=== PATIENT | female | born 1960 | race Caucasian/White ===

== ENCOUNTER 2020-01-09 10:19 | Outpatient (CLI) | payer MEDICARE, SELFPAY ==
--- NOTE | ~2020-01-09 | CT_ITS ---
EXAMINATION: CT lung screening DATE: 01/09/2020 10:48 INDICATION: Personal history of tobacco dependence, current smoker with 30 pack year history TECHNIQUE: Computed tomography (CT) of the chest was performed without intravenous contrast. The dose -length product (DLP) was 75.51 mGy-cm. Automated exposure control and iterative reconstruction techn [employer] were employed. COMPARISON: 12/06/2018 FINDINGS: There is mild emphysema. Calcified pulmonary nodules are consistent with old granulomatous disease. No new or suspicious pulmonary nodule is identified. The lungs are free of acute opacities. There is no pleural effusion or pneumothorax. No pathologically enlarged thoracic lymph nodes are delores ntified. The heart size is normal. The gallbladder is surgically absent. There is moderate thoracic s pondylosis. IMPRESSION: 1. Lung-RADS category 2: Benign appearance or behavior. Continue annual screening with noncontrast lo w-dose chest CT in 12 months. Reviewed, dictated and finalized at location B. IMPRESSION: 1. Lung-RADS category 2: Benign appearance or behavior. Continue annual screeni ng with noncontrast low-dose chest CT in 12 months.
== END 2020-01-09 10:20 | disposition home or self-care (01) ==
PROVIDERS: PCP Internal Medicine; Visit Provider Internal Medicine
DX: Z87.891 Personal history of nicotine dependence (principal); Z12.2 Encounter for screening for malignant neoplasm of respiratory organs
CPT/HCPCS: G0297

== ENCOUNTER 2020-05-27 07:36 | Outpatient (CLI) | payer MEDICARE, SELFPAY ==
--- NOTE | ~2020-05-27 | MR_ITS ---
EXAMINATION: MR lumbar spine wo [facility] EXAM DATE: 05/27/2020 08:31 INDICATION: lumbar postlaminectomy syndrome. TECHNIQUE: Multi-sequential, multiplanar MR images of the lumbar spine were obtained without contrast . Sagittal T1, T2, T2 fat saturation images. Axial T2 weighted images. There is no prior study for comparison. FINDINGS: Fusion or disc replacement at L4-5 along with laminectomies. Mild to moderate lumbar dextro scoliosis. Mild to moderate disc disease L-1-L3 and at L5-S1. There is 3 mm anterolisthesis L4-5 on S 1. The vertebral bodies are otherwise aligned. The conus medullaris terminates at the L1/2 level and has normal signal intensity and morphology. Paraspinal soft tissue is unremarkable. Level by level evaluation: T12-L1: Disc does not extend beyond the endplate margin. Facet arthropathy: Mild. Neural foraminal stenosis: No stenosis. Central canal stenosis: No stenosis. L1-L2: Disc does not extend beyond the endplate margin. Facet arthropathy: Mild. Neural foraminal stenosis: No stenosis. Central canal stenosis: No stenosis. L2-L3: There is a mild to moderate diffuse disc bulge. Facet arthropathy: Mild. Neural foraminal stenosis: Moderate left. Central canal stenosis: Mild. L3-L4: There is a mild to moderate diffuse disc bulge. Facet arthropathy: Moderate. Neural foraminal stenosis: Moderate left, mild right. Central canal stenosis: Mild to moderate. L4-L5: Interbody device. Facet arthropathy: Surgical changes. Neural foraminal stenosis: Mild to moderate bilateral. Central canal stenosis: Posterior decompression. L5-S1: There is a mild to moderate diffuse disc bulge. Facet arthropathy: Severe. Neural foraminal stenosis: Moderate to severe right, mild to moderate left. Central canal stenosis: Posterior decompression. IMPRESSION: 1. L5-S1 grade 1 anterolisthesis, severe facet arthropathy. 2. L4-5 interbody device, surgical changes, laminectomies. 3. Mild to moderate dextroscoliosis. Reviewed, dictated and finalized at location A. OR PRINCIPAL
== END 2020-05-27 07:37 | disposition home or self-care (01) ==
PROVIDERS: PCP Internal Medicine; Visit Provider Physician Assistant
DX: M47.817 Spondylosis without myelopathy or radiculopathy, lumbosacral region (principal); M48.07 Spinal stenosis, lumbosacral region
CPT/HCPCS: 72148

== ENCOUNTER 2021-04-02 09:52 | Outpatient (CLI) | payer MEDICARE, SELFPAY ==
--- NOTE | ~2021-04-02 | XR_ITS ---
EXAMINATION: XR hip BI 2V w AP pelvis DATE: 04/02/2021 10:15 INDICATION: Left sacroiliitis. Ankylosing spondylosis of lumbar region. TECHNIQUE: An anteroposterior view of the pelvis and 2 views of each hip were obtained. COMPARISON: Lumbar spine MRI 05/27/2020 FINDINGS: There is dextroscoliosis and severe spondylosis of lumbar spine. There are changes of anter ior fusion procedure at L4-L5 with interbody devices. There is mild osteoarthritis of hips. Osteitis pubis is noted. There is moderate osteoarthritis of the sacroiliac joints. IMPRESSION: 1. Moderate osteoarthritis of the sacroiliac joints. No specific evidence of inflammatory arthropathy . Reviewed, dictated and finalized at location A. ION CLERK IMPRESSION: 1. Moderate osteoarthritis of the sacroiliac joints. No specific evidence of in flammatory arthropathy.
== END 2021-04-02 09:53 | disposition home or self-care (01) ==
LOC: ANHIMG 09:58
PROVIDERS: PCP Internal Medicine; Visit Provider Internal Medicine
DX: M47.816 Spondylosis without myelopathy or radiculopathy, lumbar region (principal); M16.0 Bilateral primary osteoarthritis of hip; M53.3 Sacrococcygeal disorders, not elsewhere classified
CPT/HCPCS: 73521

== ENCOUNTER 2021-04-07 09:35 | Outpatient (CLI) | payer MEDICARE, SELFPAY ==
--- NOTE | ~2021-04-07 | CT_ITS ---
EXAMINATION: CT lung screening DATE: 04/07/2021 09:54 INDICATION: Personal history of nicotine dependence, current smoker with 30 pack year history TECHNIQUE: Computed tomography (CT) of the chest was performed without intravenous contrast. The dose -length product (DLP) was 71.38 mGy-cm. Automated exposure control and iterative reconstruction techn [employer] were employed. COMPARISON: 01/09/2020 FINDINGS: The lungs are free of acute opacities. No new or suspicious pulmonary nodules are identifie d. There is minimal mucous plugging in the left lower lobe. Calcified pulmonary nodules are consisten t with old granulomatous disease. There is no pleural effusion or pneumothorax. No pathologically enl arged thoracic lymph nodes are identified. The heart size is normal. There is mild emphysema. Changes of cholecystectomy are noted. There is moderate thoracic spondylosis. IMPRESSION: 1. Lung-RADS category 2: Benign appearance or behavior. Continue annual screening with noncontrast lo w-dose chest CT in 12 months. Reviewed, dictated and finalized at location A. ED GOODS OPERATOR IMPRESSION: 1. Lung-RADS category 2: Benign appearance or behavior. Continue annual screeni ng with noncontrast low-dose chest CT in 12 months.
== END 2021-04-07 09:36 | disposition home or self-care (01) ==
LOC: ANHIMG 09:38
PROVIDERS: PCP Internal Medicine; Visit Provider Internal Medicine
DX: Z87.891 Personal history of nicotine dependence (principal)
CPT/HCPCS: 71271

== ENCOUNTER 2021-06-03 08:28 | Emergency (ER) | payer MEDICARE, SELFPAY ==
--- NOTE | 2021-06-03 08:34 | ED.URI ---
HPI - URI/Sore Throat General Chief Complaint: Upper Respiratory Infection Stated Complaint: Sinus Infection Time Seen by Provider: 06/03/21 08:45 Source: patient, family, RN notes reviewed and old records reviewed Mode of arrival: ambulatory Limitations: no limitations History of Present Illness HPI Narrative: 61-year-old female presents to the [facility] with complaints of cough, nasal congestion and sinus pain and pressure for 2 weeks. Has tried calling her primary care provider and was unable to get in. Has tried multiple [id number]-[id number] products with no relief. Has a history of chronic sinusitis and bronchitis. Patient currently is a smoker. States that she is both Covid vaccinated and flu vaccinated MD elicited complaint: cough and nasal congestion Related Data Home Medications Medication Instructions Recorded Confirmed duloxetine mg PO 06/03/21 folic acid 06/03/21 gabapentin 06/03/21 meloxicam 06/03/21 methotrexate sodium 06/03/21 montelukast mg 06/03/21 rosuvastatin mg 06/03/21 Allergies Allergy/AdvReac Type Severity Reaction Status Date / Time No Known Allergies Allergy Verified 06/03/21 08:34 Review of Systems Review of Systems: All systems reviewed & are unremarkable except as noted in HPI and below Constitutional: Constitutional: Reports no additional constitutional complaints, Denies chills, Denies fever(s) and Denies headache(s) Eyes: Eyes: Reports no additional eye complaints ENT: Reports as per HPI, Denies vertigo, Denies dizziness, Denies headache(s), Reports nasal congestion and Denies sore throat Cardiovascular: Cardiovascular: Reports no additional cardiovascular complaints, Denies chest pain, Denies syncope, Denies rapid heart rate and Denies dyspnea Respiratory: Respiratory: Reports as per HPI, Reports cough, Denies dyspnea and Reports wheezing Gastrointestinal: Gastrointestinal: Reports no additional gastrointestinal complaints, Denies abdominal pain, Denies diarrhea, Denies nausea and Denies vomiting Musculoskeletal: Musculoskeletal: Reports no additional musculoskeletal complaints and Denies numbness Integumentary/Breasts: Skin/Breast: Reports system reviewed and no additional complaints, except as docu Neurologic: Reports system reviewed and no additional complaints, except as documented, Denies vertigo, Denies dizziness, Denies syncope, Denies headache(s), Denies focal weakness and Denies numbness Psychiatric: Psychiatric: Reports no additional psychiatric complaints Allergic/Immunologic: Allergic/Immunologic: Reports no additional allergic/immunologic complaints PMFSH Past Medical History Medical History (Updated 06/03/21 @ 19:37 by Jessica Meraz) Autoimmune disease Seasonal allergies Comments At the time of my signature, I reviewed and agree with the nursing past medical, surgical, social, and family history. There is no relevant family history pertinent to the patient complaint. Exam Const: General: cooperative, no acute distress, well developed, alert and ill appearing acutely (mild) Nutritional Appearance: well nourished Orientation/consciousness: patient oriented x3 Limitations: no limitations HENMT: Head: normal to inspection Ears: external ears normal, TM's normal bilaterally and EAC's normal Eyes: Conjunctivae: conjunctivae normal Pupils: Equal, round and reactive pupils present Neck: Neck: normal visual inspection, no lymphadenopathy and no meningeal signs Chest: Chest palpation & inspection: normal inspection of the chest Resp: Effort & Inspection: normal respiratory effort and no use of accessory muscles Auscultation: no crackles, no rales, no rhonchi and wheezes scattered wheezes and throughout Cardio: Rate: regular rate Rhythm: regular rhythm GI: GI Palp: Yes Soft to palpation and No Tenderness to palpation present (GI) Back/Spine/Pelvis: Back: no CVA tenderness Skin: General skin exam: normal color Rashes: no rashes Wounds: no w
[2021-06-03 08:40] VITALS: BP 136/76; PULSE 86; RESP 18; TEMP 37.2; O2SAT 99
== END 2021-06-03 09:01 | disposition home or self-care (01) ==
PROVIDERS: Emergency Provider Nurse Practitioner; PCP Internal Medicine
DX: J40 Bronchitis, not specified as acute or chronic (principal); J01.41 Acute recurrent pansinusitis
CPT/HCPCS: 99213; G0463

== ENCOUNTER 2021-08-04 02:12 | Day surgery (SDC) | payer MEDICARE, SELFPAY ==
[2021-07-23 13:18] VITALS: BMI 22.1
[2021-08-04 09:10] VITALS: BP 147/90; PULSE 83; RESP 20; TEMP 36.5; O2SAT 97; BMI 28.8
[2021-08-04] MEDS: LACTATED RINGERS 1,000 ML 150 ML IV CONT (09:17)
--- NOTE | 2021-08-04 09:25 | P.PNAN_ITS ---
Anes - Initial Pre Proc Eval Procedure: Operation Date: 08/04/21 10:15 Proposed Procedures p Screening Colonoscopy - Varun Pozo MD Date/Time: 08/04/21 09:25 Surgeon: Varun Pozo MD Pre Op Diagnosis: neoplasm screening Patient Data Age: 61 Gender: F Height: 1.55 m Weight: 69.1 kg Last Vital Signs Temp 97.7 F 08/04/21 09:10 Pulse 83 08/04/21 09:10 Resp 20 08/04/21 09:10 BP 147/90 H 08/04/21 09:10 Pulse Ox 97 08/04/21 09:10 Allergies Allergy/AdvReac Type Severity Reaction Status Date / Time No Known Allergies Allergy Verified 08/04/21 09:06 Home Medications Medication Instructions Recorded Confirmed Type albuterol sulfate 2 puff INHALATION QID PRN #6.7 g 06/03/21 07/23/21 Rx doxycycline monohydrate 100 mg PO BID #14 cap 06/03/21 07/23/21 Rx duloxetine 60 mg PO DAILY 06/03/21 07/23/21 History folic acid 1 mg PO DAILY 06/03/21 07/23/21 History gabapentin 300 mg PO DAILY 06/03/21 07/23/21 History inhalational spacing device [Space #1 ea 06/03/21 Rx Chamber] meloxicam 15 mg PO DAILY 06/03/21 07/23/21 History methotrexate sodium 5 mg PO DAILY 06/03/21 07/23/21 History montelukast 10 mg PO DAILY 06/03/21 07/23/21 History prednisone 20 mg PO DAILY #7 tablet 06/03/21 07/23/21 Rx rosuvastatin 20 mg PO DAILY 06/03/21 07/23/21 History Patient hx anesthesia problems: none Family hx anesthesia problems: none Results Review: All pre-operative results and documents have been reviewed as part of the pre-operative evaluation. [facility] Past Medical History Medical History (Updated 06/04/21 @ 00:01 by Watson Nava) Autoimmune disease Seasonal allergies Social History Social History Smoking packs per day: 1 Smoking cigarettes per day: 20.0 Smoking status: Current every day smoker Tobacco type: cigarettes Substance use type: does not use Living arrangements: with family Anes - Eval Final PreProcedure Day of Procedure 08/04/21 09:25 Patient weight: overweight Heart: regular rate and rhythm Lungs: clear to auscultation Airway: Mallampati scale class II Neurological: alert and oriented Last oral intake: >/= 8 hours ASA classification: III Emergent: no Anesthetic plan: proceed Anesthesia type and monitoring: general GIVS and standard monitoring Results Review: All pre-operative results and documents have been reviewed as part of the pre-operative evaluation. Informed Consent: The patient's anesthetic plan and its attendant risks and benefits were discussed with the patient/family/POA. Questions were solicited and answers provided to the satisfaction of the patient/family/POA.
--- NOTE | 2021-08-04 09:27 | WPDGICN ---
Assessment and Plan Assessment and plan (1) Family history of colon cancer in father: Code(s): Z80.0 - Family history of malignant neoplasm of digestive organs Status: Acute Assessment and Plan: Patient has a family history of colon cancer in her father. For this reason colonoscopy should be performed at least every 5 years. (2) History of colon polyps: Code(s): Z86.010 - Personal history of colonic polyps Status: Acute Assessment and Plan: Patient herself has had colon polyps. She describes that sessile polyps were identified by last exam 5 years prior to this. Further recommendations will be given after endoscopy. GI Consult Note Consult date/time: 08/04/21 09:27 HPI: Neva Yan is a 61 year old female Presents for screening colonoscopy. Patient is current weight appetite bowel movements are normal. She reports having had colon polyps [address] Vo[address] Her current weight appetite bowel movements are normal. She denies any blood in her stools. Family history is significant that her father had colon cancer. Review of Systems Review of Systems: All systems reviewed & are unremarkable except as noted in HPI and below PMFSH Past Medical History Medical History (Updated 08/04/21 @ 09:29 by Varun Pozo MD) Autoimmune disease Seasonal allergies Social History Social History Smoking packs per day: 1 Smoking cigarettes per day: 20.0 Smoking status: Current every day smoker Tobacco type: cigarettes Substance use type: does not use Living arrangements: with family Meds Home Medications and Allergies Home Medications Medication Instructions Recorded Confirmed Type albuterol sulfate 2 puff INHALATION QID PRN #6.7 g 06/03/21 07/23/21 Rx doxycycline monohydrate 100 mg PO BID #14 cap 06/03/21 07/23/21 Rx duloxetine 60 mg PO DAILY 06/03/21 07/23/21 History folic acid 1 mg PO DAILY 06/03/21 07/23/21 History gabapentin 300 mg PO DAILY 06/03/21 07/23/21 History inhalational spacing device [Space #1 ea 06/03/21 Rx Chamber] meloxicam 15 mg PO DAILY 06/03/21 07/23/21 History methotrexate sodium 5 mg PO DAILY 06/03/21 07/23/21 History montelukast 10 mg PO DAILY 06/03/21 07/23/21 History prednisone 20 mg PO DAILY #7 tablet 06/03/21 07/23/21 Rx rosuvastatin 20 mg PO DAILY 06/03/21 07/23/21 History Allergies Allergy/AdvReac Type Severity Reaction Status Date / Time No Known Allergies Allergy Verified 08/04/21 09:06 Vital Signs Vital Signs - 24 hr 08/04/21 09:10 Temperature 97.7 F Pulse Rate 83 Respiratory Rate 20 Blood Pressure 147/90 H Pulse Oximetry 97 Exam Narrative: Physical exam reveals patient to be alert. Vital signs stable. HEENT exam is unremarkable. Patient is anicteric. Lungs are clear to auscultation and percussion. Heart is without murmur or extra sounds. Abdominal exam bowel sounds are present soft nontender with no organomegaly. Digital external rectal exam is normal.
--- NOTE | 2021-08-04 09:31 | WPDANESEPPF ---
Anes - Initial Pre Proc Eval Procedure: Operation Date: 08/04/21 10:15 Proposed Procedures p Screening Colonoscopy - Varun Pozo MD Date/Time: 08/04/21 09:31 Surgeon: Varun Pozo MD Pre Op Diagnosis: neoplasm screening Patient Data Age: 61 Gender: F Height: 1.55 m Weight: 69.1 kg Last Vital Signs Temp 97.7 F 08/04/21 09:10 Pulse 83 08/04/21 09:10 Resp 20 08/04/21 09:10 BP 147/90 H 08/04/21 09:10 Pulse Ox 97 08/04/21 09:10 Allergies Allergy/AdvReac Type Severity Reaction Status Date / Time No Known Allergies Allergy Verified 08/04/21 09:06 Home Medications Medication Instructions Recorded Confirmed Type albuterol sulfate 2 puff INHALATION QID PRN #6.7 g 06/03/21 07/23/21 Rx doxycycline monohydrate 100 mg PO BID #14 cap 06/03/21 07/23/21 Rx duloxetine 60 mg PO DAILY 06/03/21 07/23/21 History folic acid 1 mg PO DAILY 06/03/21 07/23/21 History gabapentin 300 mg PO DAILY 06/03/21 07/23/21 History inhalational spacing device [Space #1 ea 06/03/21 Rx Chamber] meloxicam 15 mg PO DAILY 06/03/21 07/23/21 History methotrexate sodium 5 mg PO DAILY 06/03/21 07/23/21 History montelukast 10 mg PO DAILY 06/03/21 07/23/21 History prednisone 20 mg PO DAILY #7 tablet 06/03/21 07/23/21 Rx rosuvastatin 20 mg PO DAILY 06/03/21 07/23/21 History Patient hx anesthesia problems: none Family hx anesthesia problems: none Results Review: All pre-operative results and documents have been reviewed as part of the pre-operative evaluation. [facility] Past Medical History Medical History (Updated 08/04/21 @ 09:29 by Varun Pozo MD) Autoimmune disease Seasonal allergies Social History Social History Smoking packs per day: 1 Smoking cigarettes per day: 20.0 Smoking status: Current every day smoker Tobacco type: cigarettes Substance use type: does not use Living arrangements: with family Heaven Salgado Final PreProcedure Day of Procedure 08/04/21 09:31 Patient weight: overweight Heart: regular rate and rhythm Lungs: clear to auscultation Airway: Mallampati scale class II Neurological: alert and oriented Last oral intake: >/= 8 hours ASA classification: III Emergent: no Results Review: All pre-operative results and documents have been reviewed as part of the pre-operative evaluation. Informed Consent: The patient's anesthetic plan and its attendant risks and benefits were discussed with the patient/family/POA. Questions were solicited and answers provided to the satisfaction of the patient/family/POA.
[2021-08-04] MEDS: SIMETHICONE ORAL SUSPENSION 20 MG/0.3 ML 30 ML BOTTLE 0.6 ML IRRIGATION (10:14)
[2021-08-04 10:20] VITALS: BP 109/74; PULSE 66; RESP 16; O2SAT 99
[2021-08-04 10:30] VITALS: BP 138/90; PULSE 60; RESP 21; O2SAT 99
[2021-08-04 10:40] VITALS: BP 141/92; PULSE 62; RESP 18; O2SAT 100
== END 2021-08-04 10:52 | disposition home or self-care (01) ==
PROVIDERS: PCP Internal Medicine; Visit Provider Internal Medicine Gastroenterology
PROC: 0DJD8ZZ Inspection of Lower Intestinal Tract, Via Natural or Artificial Opening Endoscopic (ICD-10-PCS; CPT 45378; principal; 2021-08-04 10:15)
DX: Z12.11 Encounter for screening for malignant neoplasm of colon (principal); D12.5 Benign neoplasm of sigmoid colon; K63.5 Polyp of colon; K64.8 Other hemorrhoids; Z80.0 Family history of malignant neoplasm of digestive organs; F17.210 Nicotine dependence, cigarettes, uncomplicated
CPT/HCPCS: 45385; 88305; J2704; J7120

== ENCOUNTER 2022-01-16 08:02 | Outpatient (CLI) | payer MEDICARE, SELFPAY ==
--- NOTE | ~2022-01-16 | US_ITS ---
EXAMINATION: US right upper quadrant DATE: 01/16/2022 10:13 INDICATION: Abnormal liver function tests. TECHNIQUE: Multiple grayscale and Doppler ultrasound images of the abdomen were obtained. COMPARISON: Ultrasound 06/15/2017 FINDINGS: The visualized portions of the head and body of the pancreas are normal. The liver is marvin l without focal lesion. No liver surface nodularity. There is normal flow in main portal vein. The ga llbladder is absent. The common duct is normal and measures 4 mm. IMPRESSION: 1. Normal right upper quadrant ultrasound status post cholecystectomy. Reviewed, dictated and finalized at location A.
== END 2022-01-16 08:03 | disposition home or self-care (01) ==
PROVIDERS: PCP Internal Medicine; Visit Provider Internal Medicine
DX: R74.01 Elevation of levels of liver transaminase levels (principal); Z13.820 Encounter for screening for osteoporosis; Z78.0 Asymptomatic menopausal state
CPT/HCPCS: 76705

== ENCOUNTER 2022-07-07 08:43 | Outpatient (CLI) | payer MEDICARE, SELFPAY ==
--- NOTE | ~2022-07-07 | CT_ITS ---
EXAMINATION:CT lung screening DATE: 07/07/2022 08:59 INDICATION: Nicotine dependence. Current smoker with 38 pack year history. TECHNIQUE: Computed tomography (CT) of the chest was performed without intravenous contrast. Automate d exposure control and iterative reconstruction technique were employed. The dose-length product (DLP ) was 83.58 mGy-cm. COMPARISON: Chest CT 04/07/2021 FINDINGS: There is mild scarring at the lung apices. There is mild emphysema. A calcified right lung nodule is consistent with old granulomatous disease. No pleural effusion. The heart size is normal. N o pericardial effusion. There are changes of cholecystectomy. There are old healed bilateral rib frac tures. There is mild chronic anterior wedging of multiple thoracic vertebral bodies. There is moderat e thoracic spondylosis. IMPRESSION: 1. Lung-RADS category 2: Benign appearance or behavior. Continue annual screening with noncontrast lo w-dose chest CT in 12 months. Reviewed, dictated and finalized at location A. RIFUGAL SCREEN TENDER IMPRESSION: 1. Lung-RADS category 2: Benign appearance or behavior. Continue annual screeni ng with noncontrast low-dose chest CT in 12 months.
== END 2022-07-07 08:44 | disposition home or self-care (01) ==
LOC: ANHIMG 08:45
PROVIDERS: PCP Internal Medicine; Visit Provider Internal Medicine
DX: Z12.2 Encounter for screening for malignant neoplasm of respiratory organs (principal); F17.210 Nicotine dependence, cigarettes, uncomplicated
CPT/HCPCS: 71271

== ENCOUNTER 2022-08-10 07:45 | Outpatient (CLI) | payer MEDICARE, SELFPAY ==
--- NOTE | ~2022-08-10 | DEXA_ITS ---
Bone Density Report Name: ANAHI FROST Age: 62 Sex: Female Ethnicity: White Date of : 1960 Indication: postmenopausal; screening for osteoporosis; height loss; Referring Provider: YANIQUECORKY Study: Bone densitometry was performed. Exam Date: August 10, 2022 Accession number: [id number] Bone Density: Region BMD T-score Z-score Classification AP Spine(L1, L2, L3) 0.948 -0.6 1.0 Normal Femoral Neck (Left) 0.567 -2.5 -1.1 Osteoporosis Total Hip (Left) 0.695 -2.0 -0.9 Osteopenia Femoral Neck (Right) 0.586 -2.4 -0.9 Osteopenia Total Hip (Right) 0.678 -2.2 -1.0 Osteopenia Total Hip Mean 0.686 -2.1 -1.0 Osteopenia World Health Organization criteria for BMD impression classify patients as: Normal (T-score at or above -1.0), Osteopenia (T-score between -1.0 and -2.5), or Osteoporosis (T-score at or below -2.5). 10-year Fracture Risk: FRAX not reported because: Some T-score for Spine Total or Hip Total or Femoral Neck at or below -2.5 Clinical Information Provided by Patient: Smokes Has used the following medications: Vitamin D Patient maximum height was 71 No regular weight bearing exercise Drinks caffeinated beverages Onset of menses at age 12 Number of children 0 Impression: The patient has osteoporosis, based on the Left Femoral Neck T-score. The patient has risk factors, including: smoking. Discussion: INCREASED RISK OF FRACTURE. BONE DENSITY IS UNDESIRABLY LOW AT ONE OR MORE SKELETAL SITES, CONSISTENT WITH POSTMENOPAUSAL OSTEOPOROSIS. This patient's lowest T-score meets the World Health Organization's (WHO) criteria for osteoporosis at one or more sites (T-score -2.5 or below). In untreated patients, the risk of osteoporotic fracture increases approximately two-fold for each 1.0 SD decrease in T-score. Low bone density is not the only risk factor for fracture; also consider factors such as patient's age, frailty or poor health, risk of falling, risk of injury, previous osteoporotic fracture, family history of osteoporosis, cigarette smoking, low body weight, etc. Not everyone with low bone mineral density has osteoporosis; osteomalacia and other metabolic bone disorders should also be considered. Patients who have osteoporosis should be evaluated for specific diseases and conditions (secondary causes) that may cause or contribute to bone loss. The [place] [employer] Endocrinologists (AACE) and National Osteoporosis Foundation (NOF) recommend pharmacologic intervention for all postmenopausal women whose T-score is in this range. The patient should follow a healthful lifestyle (good nutrition with adequate calcium and vitamin D, and appropriate weight-bearing exercise). Follow-Up: Consider a repeat BMD and Vertebral Fracture Assessment (VFA) exam in 2 years or sooner
== END 2022-08-10 07:46 | disposition home or self-care (01) ==
LOC: ANHIMG 07:47
PROVIDERS: PCP Internal Medicine; Visit Provider Internal Medicine
DX: Z13.820 Encounter for screening for osteoporosis (principal); Z78.0 Asymptomatic menopausal state; M81.0 Age-related osteoporosis without current pathological fracture; M85.852 Other specified disorders of bone density and structure, left thigh; M85.851 Other specified disorders of bone density and structure, right thigh
CPT/HCPCS: 77080

== ENCOUNTER 2023-07-29 09:23 | Outpatient (CLI) | payer MEDICARE, SELFPAY ==
--- NOTE | ~2023-07-29 | XR_ITS ---
EXAMINATION: XR thoracic spine 3V DATE: 07/29/2023 09:54 INDICATION: Thoracic radiculopathy TECHNIQUE: AP, lateral and lateral swimmer's views of the thoracic spine were obtained. COMPARISON: None. FINDINGS: Bone alignment is normal. There is no fracture. The vertebral body heights are maintained. There is moderate loss of intervertebral disc space height at multiple levels in the midthoracic spin e. Small degenerative osteophytes project from the anterior endplates of multiple vertebral bodies. IMPRESSION: 1. Moderate thoracic spondylosis without acute findings. Reviewed, dictated and finalized at location F.
--- NOTE | ~2023-07-29 | XR_ITS ---
EXAMINATION: XR lumbar spine 2-3V DATE: 07/29/2023 09:54 INDICATION: Lumbar radiculopathy TECHNIQUE: Anteroposterior and lateral views of the lumbar spine, and cone-down lateral view of the l umbosacral junction were obtained. COMPARISON: 03/31/2007 FINDINGS: There are changes of interbody device placement and laminectomy at L4-5. Vertebral body ali gnment is normal. There are 17 degrees of lumbar dextroscoliosis. There is severe loss of interverteb ral disc space height at L2-3 and L3-4 and moderate loss of disc space height at L5-S1. There is no f racture. There is severe facet joint osteoarthritis of the lower lumbar spine. The previously describ ed neurostimulator device in its leads have been removed. IMPRESSION: 1. Severe lumbar spondylosis without acute findings. Reviewed, dictated and finalized at location F.
--- NOTE | ~2023-07-29 | XR_ITS ---
EXAMINATION:XR_CERV2-3V_CR DATE: 07/29/2023 09:54 INDICATION: Cervical radiculopathy TECHNIQUE: AP, lateral, lateral swimmers and odontoid views of the cervical spine are provided. COMPARISON: None FINDINGS: There are 2 mm of retrolisthesis of C3 on C4. The odontoid process is intact. No fracture i s identified. Vertebral body heights are maintained. There is severe loss of intervertebral disc spac e height at C5-6 and C6-7. Small degenerative osteophytes project from the anterior endplates of mult iple vertebral bodies. There is multilevel severe facet joint osteoarthritis. There is severe bilater al uncovertebral joint osteoarthritis of the lower cervical spine. Prevertebral soft tissues are norm al. IMPRESSION: 1. Severe cervical spondylosis without acute findings. Reviewed, dictated and finalized at location F.
== END 2023-07-29 09:24 | disposition home or self-care (01) ==
PROVIDERS: PCP Internal Medicine; Visit Provider Pain Medicine Interventional Pain Medicine
DX: M43.06 Spondylolysis, lumbar region (principal); M43.02 Spondylolysis, cervical region; M43.04 Spondylolysis, thoracic region
CPT/HCPCS: 72040; 72072; 72100

== ENCOUNTER 2023-08-04 06:57 | Outpatient (CLI) | payer MEDICARE, SELFPAY ==
--- NOTE | ~2023-08-04 | CT_ITS ---
EXAMINATION:CT lung screening DATE: 08/04/2023 07:15 INDICATION: Personal history of nicotine dependence. Current smoker with 39 pack year history. TECHNIQUE: Computed tomography (CT) of the chest was performed without intravenous contrast. Automate d exposure control and iterative reconstruction technique were employed. The dose-length product (DLP ) was 86.61 mGy-cm. COMPARISON: Chest CT 07/07/2022 FINDINGS: There is mild scarring at the lung apices. There is mild emphysema. A calcified right lung nodule is consistent with old granulomatous disease. There are tree-in-bud opacities and small centri lobular nodules in right middle lobe and right lower lobe, consistent with infection/inflammation. Th ere are a few 1-2 mm nodules in left lower lobe. No pleural effusion. The heart size is normal. No pe ricardial effusion. There is a ectasia of ascending aorta measuring 4.0 cm. There are changes of chol ecystectomy. There are old healed right rib fractures. There is severe cervical spondylosis, mild tho racic spondylosis, and severe lumbar spondylosis. There is mild chronic anterior wedging of multiple lumbar thoracic vertebral bodies. IMPRESSION: 1. Lung-RADS category 2: Benign appearance or behavior. Continue annual screening with noncontrast lo w-dose chest CT in 12 months. 2. Mild infection/inflammation involving right middle lobe and right lower lobe. Reviewed, dictated and finalized at location A. IMPRESSION: 1. Lung-RADS category 2: Benign appearance or behavior. Continue annual screeni ng with noncontrast low-dose chest CT in 12 months. 2. Mild infection/inflammation involving right middle lobe and right lower lobe .
== END 2023-08-04 06:58 | disposition home or self-care (01) ==
PROVIDERS: PCP Internal Medicine; Visit Provider Internal Medicine
DX: Z12.2 Encounter for screening for malignant neoplasm of respiratory organs (principal); R91.8 Other nonspecific abnormal finding of lung field; Z87.891 Personal history of nicotine dependence
CPT/HCPCS: 71271

== ENCOUNTER 2023-08-05 09:52 | Outpatient (CLI) | payer MEDICARE, SELFPAY | END 2023-08-05 09:53 | disposition home or self-care (01) | LOC: ANHAUDIO 09:52 | PROVIDERS: PCP Internal Medicine; Visit Provider Otolaryngology | DX: H90.3 Sensorineural hearing loss, bilateral (principal) | CPT/HCPCS: 92557; 92567 ==

== ENCOUNTER 2024-01-19 13:17 | Outpatient (CLI) | payer MEDICARE, SELFPAY ==
[2024-01-19 14:36] LABS: Strep Group A RT-PCR NOT DETECTED (Negative)
[2024-01-19 14:48] LABS: Influenza A QL RT-PCR Negative (Negative); Influenza B QL RT-PCR Negative (Negative); RSV RNA, RT-PCR Negative (Negative); SARS-CoV-2 RNA PCR Negative (Negative)
== END 2024-01-19 13:18 | disposition home or self-care (01) ==
LOC: ANHLAB 13:20
PROVIDERS: PCP Internal Medicine; Visit Provider Internal Medicine
DX: J06.9 Acute upper respiratory infection, unspecified (principal); Z20.822 Contact with and (suspected) exposure to COVID-19
CPT/HCPCS: 87637; 87651

== ENCOUNTER 2024-03-29 09:17 | Outpatient (CLI) | payer MEDICARE, SELFPAY ==
--- NOTE | ~2024-03-29 | MR_ITS ---
EXAMINATION: MR lumbar spine wo con DATE: 03/29/2024 09:54 INDICATION: Low back pain. Radiculopathy. TECHNIQUE: Magnetic resonance imaging (MRI) of the lumbar spine was performed without intravenous con trast. COMPARISON: Lumbar spine MRI 05/27/2020 FINDINGS: There is 13 degrees dextroscoliosis of lumbar spine. There is 4 mm retrolisthesis of L3 on L4 and 4 mm anterolisthesis of L5 on S1. There are changes of anterior fusion procedure at L4-L5 with interbody devices. Vertebral body heights are normal. There is severely decreased disc height at L2- L3 and L3-L4 and moderately decreased disc height at L5-S1. The distal spinal cord signal intensity i s normal. The conus medullaris is at L1. Partially visualized are sacral insufficiency fractures with edema-like marrow signal intensity. The following disc levels are specifically discussed: L1-L2: The disc is bulging. There is mild bilateral facet joint osteoarthritis. There is no neural fo raminal stenosis. There is no central canal stenosis. L2-L3: The disc is bulging and has an annular fissure. There is mild right and severe left facet join t osteoarthritis. There is mild right and moderate left neural foraminal stenosis. There is mild cent ral canal stenosis. L3-L4: The disc is bulging and has an annular fissure. There is moderate right and severe left facet joint osteoarthritis. There is mild right and moderate left neural foraminal stenosis. There is mild central canal stenosis. L4-L5: There is no facet joint hypertrophy. There is moderate bilateral neural foraminal stenosis. Th ere is mild central canal stenosis. There is posterior decompression. L5-S1: The disc is bulging and has an annular fissure. There is severe bilateral facet joint osteoart hritis. There is moderate right and mild left neural foraminal stenosis. There is mild central canal stenosis. IMPRESSION: 1. Severe lumbar spondylosis, worsened from 05/27/2020. 2. Anterior fusion procedure at L4-L5. 3. Lumbar dextroscoliosis. Reviewed, dictated and finalized at location A. 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
== END 2024-03-29 09:18 | disposition home or self-care (01) ==
PROVIDERS: PCP Internal Medicine; Visit Provider Pain Medicine Interventional Pain Medicine
DX: M43.06 Spondylolysis, lumbar region (principal); M41.86 Other forms of scoliosis, lumbar region; Z98.1 Arthrodesis status
CPT/HCPCS: 72148

== ENCOUNTER 2024-08-07 09:08 | Outpatient (CLI) | payer MEDICARE, SELFPAY ==
--- NOTE | ~2024-08-07 | US_ITS ---
RIGHT UPPER QUADRANT ABDOMINAL ULTRASOUND (Doppler ultrasound interrogation techniques used as needed for this exam.) Ordering provider: Chelle RamirezMD History: . ELEVATED LIVER ENZYMES . Comparison: None. FINDINGS: PANCREAS: Partially visualized with normal echotexture and size. PORTAL VEIN: Hepatopedal flow demonstrated. LIVER: Normal size and echotexture. Measures 13.8 cm. No focal hepatic lesions or perihepatic fluid c ollections are identified. BILIARY DUCTS: No intra or extrahepatic biliary dilation. Common bile duct measures 5.1 mm in diamete r which is normal for patient's age. GALLBLADDER: Surgically removed. IVC: Patent. Abdominal aorta: Patent. FREE FLUID: None visualized within the upper abdomen. IMPRESSION: normal right upper quadrant ultrasound. Reviewed, dictated and finalized at location A.
--- OUTSIDE RECORDS SUMMARY | 2024-08-07 09:51 | XMS_ITS | CONTINUITY OF CARE DOCUMENT ---
Author Name [email or web address] Address Unknown Organization [facility] Address [address] [place] [address] Phone [phone] Care Team Providers Care Technical Training Coordinator Name Role Phone Sj Ledbetter MD Unavailable [phone] CORKY CHANEL MD Unavailable CORKY CHANEL MD Unavailable [phone] PROBLEMS Condition Status Date Provider Notes Thoracic aortic aneurysm active Sj Ledbetter MD COPD active Sj Ledbetter MD Tobacco abuse active Sj Ledbetter MD Dyslipidemia active Sj Ledbetter MD Elevated liver enzymes active Sj Fierro Abnormal EKG active Sj Ledbetter MD Cardiovascular screening active Vel Sheriff nbach ENCOUNTERS Date Type Provider Location Encounter Diag nosis - In-person encounter Office Visit Sj Ledbetter MD [facility] Cardiovascular screening - In-person encounter Office Visit Sj Ledbetter MD [facility] Thoracic aortic aneurysmCOPDTobacco abuseDyslipidemiaElevated liver enzymesAbnormal EKG VITAL SIGNS Date Observation Value Provider Body Mass Index (Ratio) 21.62 kg/m2 Chung Moseley blood pressure, diastolic 98 mm[Hg] Radha brewsterLogmolly blood pressure, systolic 169 mm[Hg] Inocencia Dobsonogmolly blood pressure, diastolic 98 mm[Hg] Ja rret blood pressure, systolic 169 mm[Hg] Nikki corcoran oxygen saturation, oximetry 97 % [place] respiratory rate E&M 16 /min Hamilton pulse rate 67 /min Hamilton y blood pressure, cuff size regular Brendan adamson weight E&M 155 [lb_av] Hamilton y Body Mass Index (Ratio) 22.73 kg/m2 David whitney [facility] blood pressure, cuff size regular Cy rox Blevins blood pressure, diastolic 80 mm[Hg] Eliecer Blevins blood pressure, systolic 130 mm[Hg] Rabia Blevins oxygen saturation, oximetry 95 % Demi Blevins respiratory rate E&M 16 /min Demi Blevins pulse rate 78 /min Demi Madisonbel l weight E&M 163 [lb_av] Demi Madisonbel l height E&M 71 [in_i] Demi Campbel l ALLERGIES Allergy Name Onset Date Reaction Criticality Status CHANTIX suicidal ideation suicidal ideation High Criticality active RESULTS Date Observation Value Provider Reference Range Interpretation Location platelet count 222 10*3/uL [facility] red blood cell distribution width 12.6 % [facility] mean corpuscular hemoglobin concentration, RBC 33.3 g/dL [facility] mean corpuscular hemoglobin, RBC 30.4 pg [facility] mean corpuscular volume, RBC 91.5 fL [facility] hematocrit, blood 42.1 % [facility] hemoglobin, blood 14.0 g/dL [facility] erythrocyte (RBC) count 4.60 10*6/mm3 [facility] leukocyte count, blood 4.1 10*3/mm3 [facility] carbon dioxide, venous blood 31 mmol/L [facility] protein, total, serum 6.3 g/dL [facility] albumin, serum 4.1 g/dL [facility] bilirubin, serum, total 0.7 mg/dL [facility] alkaline phosphatase, serum 187 1/L [facility] alanine aminotransferase (SGPT), serum 178 1/L [facility] aspartate aminotransferase (SGOT), serum 183 1/L [facility] calcium, serum 9.5 mg/dL [facility] blood glucose, fasting 91 mg/dL [facility] creatinine, serum 0.76 mg/dL [facility] urea nitrogen, blood 8 mg/dL [facility] carbon dioxide, serum, total 31 mmol/L [facility] chloride, serum 105 mmol/L [facility] potassium, serum 4.3 mmol/L [facility] sodium, serum 141 mmol/L [facility] triglyceride, serum, fasting 149 mg/dL [facility] HDL cholesterol, serum 83 mg/dL [facility] LDL cholesterol, serum 60 mg/dL [facility] cholesterol, serum 166 mg/dL [facility] HISTORY OF MEDICATION USE Medication Status Instructions Dates Provider Indications Com ments ALPRAZOLAM 1 MG ORAL TABLET active take 1 tab at bedtime 8 Demi Blevins CYCLOBENZAPRINE HCL 5 MG ORAL TABLET active take 1 tab at bedtime 8 Demi Blevins GABAPENTIN 800 MG ORAL TABLET active take 1 tab daily 8 Demi Blevins CYMBALTA 60 MG ORAL CAPSULE DELAYED RELEASE PARTICLES active take 1 tab daily 8 Demi Blevins MONTELUKAST SODIUM TABLET active take daily 8 Demi Blevins OXYCODONE HCL 10 MG ORAL TABLET active take 1 tab four times daily as needed 8 Demi Blevins KRILL OIL 500 MG ORAL CAPSULE active take 1 cap daiy 8 Demi Blevins SUPER B-50 ORAL TABLET active take daily 8 Demi Blevins MAGNESIUM GLUCONATE 250 MG ORAL TABLET active take 1 tab daily 8 Demi Gen B-12 100 MCG ORAL TABLET active take 1 tab daily 8 Demi Blevins CALCIUM 600+D3 600-800 MG-UNIT ORAL TABLET active take 1 tab daily 8 Demi Gen MULTIVITAMIN ADULTS ORAL TABLET active take 1 tab once daily 8 Demi Blevins SOCIAL HISTORY Date Observation Value Provider number of years as a smoker 30 a Vel Moseley smoking history, total pack/day 1/2 Vel Moseley cigarette use yes eVl Bonilla ch smoking status Current every day smoker D sergei Moseley number of years as a smoker 30 a Demi Blevins smoking history, total pack/day 1/2 Sj Ledbetter MD cigarette use yes Demi kraft smoking status Current every day smoker C attila Blevins FAMILY HISTORY Family Member Condition Full Sister Family History of Hy pertension: Full Brother Family History of Co ronary Artery Disease: Full Brother Family History of Ar thritis: Mother Family History of Co ngestive Heart Failure: INSURANCE PROVIDERS Payer name Policy type / Coverage type Gil red republican ID AARP MEDICARE ADVANTAGE HMO-POS HMO [id number] ADVANCE DIRECTIVES Name Date DISCUSSED - NO DECISION MADE TREATMENT PLAN Date Name Performer Cardiology:Statins stopped by JANEEN Moseley Cardiology:The Patie nt was reencouraged to stop smoking. Vel Moseley Cardiology:Pt had a CT of the chest at [facility] in July 2023 and was sent to us for further eval for that. We do not have access to CT report at this time. We will obtain the report, and a f/u echo. Vel Moseley Cardiology New Patie nt :Encouraged to quit. Pt reports she had suicidal ideation with Chantix. Sj Ledbetter MD Cardiology New Patie nt :CHOL: 166 (03/17/2019) LDL: 60 (03/17/2019) HDL: 83 (03/17/2019) T (03/17/2019) Statin stopped by Dr. Chanel due to elevated liver enzymes per patient. Sj Ledbetter MD [facility] :Will request CT report and schedule echo. Sj Ledbetter MD Date Name Complete Echo Complete Echo HISTORY OF PROCEDURES Procedure Date Procedure Name Provider Procedure Notes S tatus Complex e/m visit add on Sj Ledbetter MD completed EKG Sj Ledbetter MD completed EKG Sj Ledbetter MD completed
--- OUTSIDE RECORDS SUMMARY | 2024-08-07 09:51 | XMS_ITS ---
Author Organization [facility] Address [address] [place] [address] Phone Care Team Providers Care Threading Machine Tender Name Role Phone Unavailable Unavailable Unavailable Plan of Treatment No Plan of Treatment Recorded Assessments Includes: Assessments for all patient encounters No Assessments Recorded Medical Equipment - Implanted Devices Includes: Current and historical Devices No Medical Equipment Recorded Medications Administered Includes: Administered Medications in patient's chart No Administered Medications Recorded Results Includes: Results from 08/08/2023 through 08/07/2024 No Results Recorded For Specified Dates History of Present Illness History of Present Illness not supported for this document type No History of Present Illness Recorded Social History No Social History Recorded - Smoking Status Unknown Medical History Includes: Medical History in patient's chart No Medical History Recorded Family History Includes: Family History in patient's chart No Family History Recorded Review of Systems Review of Systems not supported for this document type No Review of Systems Recorded Mental Status No Mental Status Recorded Functional Status No Functional Status Recorded Physical Exam Physical Exam not supported for this document type No Physical Exam Recorded Clinical Notes Includes: Signed Clinical Notes starting from 05/22/2022 No Clinical Notes Recorded
--- OUTSIDE RECORDS SUMMARY | 2024-08-07 09:52 | XMS_ITS | Referral Summary ---
Author Organization [place] [id number] [facility] Address [address] [place] [address] Care Team Providers Care Smart Grid Engineer Name Role Phone Genna Heredia MD Primary Care Provide r Social History Tobacco Use Types Packs/Day Years Used Date Smoking Tobacco: Never Assessed Comments No Sex and Gender Information Value Date Recorded Sex Assigned at Not on file Legal Sex Female 5:12 PM COTTON TIPPER Gender Identity Not on file Sexual Orientation Not on file Plan of Treatment Not on file Procedures Procedure Name Priority Date/Time Associated Diagnosis Comments SCREENING MAMMOGRAM BILATERAL W MICAH Schedule Routine, Read Routine (OP Routine) 03/02/2024 9:38 AM CDT Screening mammogram, encounter for OCCULT BLOOD, FECAL (FIT) Routine 03/12/2014 9:05 AM COTTON TIPPER from Last 3 Months or Most Recently Relevant to Health Maintenance Results * Screening Mammogram Bilateral W Micah (03/02/2024 9:38 AM CDT) Anatomical Region Laterality Modality Breast Bilateral Mammography Impressions 03/02/2024 10:09 AM CDT BI-RADS ATLAS category (overall): 1 - Negative There is no mammographic evidence of malignancy. A 1 year screening mammogram is recommended. The patient has been or will be contacted. We recommend annual screening mammography for women at average risk of breast cancer beginning at age 40, based on guidelines of the [employer] (ACR Practice Parameter for the Performance of Screening and Diagnostic Mammography) and [employer]. For women with and elevated risk of breast cancer, please refer to the ACR Practice Parameter for specific screening recommendations. The patient will be entered into a reminder system with a target due date of 1 year for her next screening exam. Narrative 03/02/2024 10:09 AM CDT Screening Mammogram Bilateral W Micah: 03/02/24 The study was acquired using full field digital technology and interpreted from soft copy. 2D digital mammographic views, as well as 3D digital tomosynthesis were performed in the CC and MLO projections. CLINICAL: Screening mammogram, encounter for. No relevant medical history has been documented for this patient. History of breast cancer in Maternal Grandmother. COMPARISONS: 07/15/2022 Screening Mammogram Bilateral W Micah 01/07/2021 Diagnostic Mammogram Bilateral W Micah 07/02/2020 Diagnostic Mammogram Right W Micah 12/06/2019 Diagnostic Mammogram Bilateral W Micah 06/02/2019 Diagnostic Mammogram Right W Micah 02/24/2019 US Guided Biopsy Sentinal Node Core Superficial Not FNA Breast Related 02/14/2019 US Breast Right Limited 02/14/2019 Diagnostic Mammogram Right W Micah 12/02/2018 US Guided Biopsy Sentinal Node Core Superficial Not FNA Breast Related 11/04/2018 Diagnostic Mammogram Right W Micah 11/04/2018 US Breast Right Limited 10/26/2018 Screening Mammogram Bilateral W Micah 09/06/2017 Screening Mammogram Bilateral W Micah 08/07/2016 Screening Mammogram Bilateral W Micah 05/01/2015 Screening Mammogram Bilateral W Micah 03/15/2014 Screening Mammogram 2D Bilateral BREAST TISSUE: There are scattered areas of fibroglandular density. FINDINGS: There is a biopsy clip in the right breast. No suspicious masses, suspicious calcifications, or other suspicious findings are seen within either breast. There has been no suspicious change. us Self Screening Mammogram IMG MAMMO PROCEDURES Fi nal Result * Occult blood, fecal non neoplasm screening (03/12/2014 9:05 AM COTTON TIPPER) Stool Occult Blood POSITIVE NEGATIVE 03/12/2014 2:25 PM COTTON TIPPER [facility] HISTORICAL RESULTS 03/12/2014 9:05 AM COTTON TIPPER 03/12/2014 2:22 PM COTTON TIPPER us Historical Provider LAB BODY FLUIDS AND STOOL S ORDERABLES Final Result [facility] HISTORICAL RESULTS from Last 3 Months or Most Recently Relevant to Health Maintenance Insurance [facility] Address: [address] [place] [phone] MEDICARE ADVANTAGE [facility] Address: [address] [place] [phone] Care Teams Smart Grid Engineer Relationship Specialty Start Date End Date Genna Heredia MD PCP - General 10/18/18
--- OUTSIDE RECORDS SUMMARY | 2024-08-07 09:52 | XMS_ITS | Data Portability ---
Author Organization ID - [facility] [place], Main Office Address [address] [place] [address] Care Team Providers Care Dry Chain Operator Name Role Phone CORKY HEREDIA Primary Care Provider CORKY HEREDIA Referring Provider YON RODRIGUEZ Student Counselor SJ LEDBETTER Grading Machine Feeder DESHAUN MARTI Pain Management BALDEV GREY Associate Director Financial Aid [facility] Copier Field Service Technician Assessment Encounter Date Assessment Date Assessment LastModified by Organization Details LastModified Time 04/14/2023 04/14/2023 12/16/2021: TSH/FT4: WNL LIPIDSL TG 160 CMP: ALP 281, AST 102, ALT 92 CBC: WBC 3.6L Not available 04/13/2023 17:15:49 10/13/2023 10/13/2023 12/16/2021: TSH/FT4: WNL LIPIDSL TG 160 CMP: ALP 281, AST 102, ALT 92 CBC: WBC 3.6L Not available 10/12/2023 10:04:29 12/01/2023 12/01/2023 Assessment: Nicotine smoke: 1 ppd 1988-present = 35 pack years Cough Dyspnea Pulmonary nodules Plan: The following were reviewed and explained to the patient: primary care/referral note Chest CT 08/09/17 emphysema, right lung nodules Chest CT 12/06/[address] 01/09/[address] 04/07/[address] 07/07/[address] 08/04/23 LLL/RML/RLL nodules, emphysema Nicotine cessation counseling provided for 4 minutes. [place] for quitting nicotine include getting ready, getting support and encouragement, learning new skills and behaviors and being prepared to handle slips. Tips for dealing with cravings provided. Prevention of subsequent illnesses from nicotine addiction discussed. Comorbidities include but are not limited to hypertension, cerebrovascular disease, coronary heart disease, congestive heart failure, hyperlipidemia, COPD/asthma, peptic ulcer disease, esophagitis/gastri tis, and osteoporosis. Therapy options offered include: Quitting by total abstinence Receiving nicotine replacement therapy Undergoing hypnosis Filling a bupropion or varenicline prescription Enrolling in Quit For Life program Registering at [email or web address] Making a call to 0-248-BACL-NOW ( ). A strong, clear, personalized message was given to the patient to quit smoking. The patient was urged to set a quit date. We discussed patient's barriers to quitting and I will be of assistance when patient is ready to quit. I encouraged patient to inform friends and family of plans to quit with a request for support. I encouraged the patient to remove all cigarettes from the environment. We reviewed any previous quit attempts and lessons learned from them. I encouraged total abstinence from smoking and advised the patient that drinking alcohol and/or associating with other smokers are associated with failure or relapse. Patient can enroll in [facility]'s smoking cessation class through Yolande Piña RN at . Enrollment is free and classes are held every wednesday of the month from 1:30 pm to 2:30 pm at the conference room next to the cafeteria on the ground floor. Differential diagnoses for pulmonary nodule: 1. malignant tumor 2. benign tumor 3. inflammatory processes 4. infectious process (viral, atypical bacterial, fungal, atypical mycobacterial) The Fleischner Society pulmonary nodule recommendations below pertain to the follow-up and management of indeterminate pulmonary nodules detected incidentally on CT and are published by the Fleischner Society. The guideline does not apply to lung cancer screening, patients younger than 35 years, or patients with a history of primary cancer or immunosuppression. These recommendations reflect the 2017 revision 4, which supersedes prior versions published in 2005 and 2013. Multiple solid nodules <6 mm (<100 mm3) *low-risk patients: no routine follow-up required *high-risk patients: optional CT at 12 months Multiple solid nodules >6 mm (>100 mm3) *low-risk patients: CT at 3-6 months, then consider CT at 18-24 months *high-risk patients: CT at 3-6 months, then CT at 18-[address] 08/2024. Cough/Dyspnea workup will be done as follows: Respiratory allergen panel for [facility] Serum IgE Serum total IgG, IgG1, IgG2, IgG3, IgG4 Tvwyf-0-pqbosmypki n phenotype and level TB stimulated gamma interferon B-type natriuretic peptide (BNP) Eosinophil count Complete pulmonary function testing (PFT) Continue Albuterol HFA as needed. The patient does not know how to accurately administer the inhaler. Today, the patient was shown how to take this medication. The proper technique for delivering this medication was instructed. The patient expressed a clear understanding and demonstrated back how to use this medication. Without the proper technique, the patient will not reap the benefits of the treatment as the contents of the inhaler will not reach the lower airways as intended to be. Adherence to therapy is advocated. Nonadherence may lead to treatment failure, further progression of the condition, and other complications. Hospitals admissions are often the result of individuals not taking prescription medications accurately. Alternatively, greater adherence to medication regimens have shown to lower rates of hospitalization and decrease total medical costs in patients with chronic medical conditions. Advocated influenza vaccination annually and pneumonia vaccination ABEL. Encouraged patient to adjust caloric intake to maintain/achieve ideal body weight, emphasizing on fruits, vegetables, whole grains, and fat-free or low-fat products. These include lean meats, poultry, fish, beans, eggs, and nuts and foods that are low in saturated fats, trans-fats, cholesterol, salt (sodium), and glycemic index. Stressed the importance of regular exercise up to the patient's capacity limits. In this case, we recommend 20 min daily walking, 2 days a week of resistance training. Patient to monitor BP daily and bring records to PCP for further management. Follow-up: 1 week after PFT Not available 12/01/2023 11:24:49 01/26/2024 01/26/2024 Assessment: Rhinitis IgE 1295 IU/mL Hypogammaglobuline lizzie (IgG3) Nicotine smoke: 1 ppd 1988-present = 35 pack years Severe COPD Pulmonary nodules Plan: The following were reviewed and explained to the patient: Chest CT 08/09/17 emphysema, right lung nodules Chest CT 12/06/[address] 01/09/[address] 04/07/[address] 07/07/[address] 08/04/23 LLL/RML/RLL nodules, emphysema Lab data 12/01/23 allergic to short ragweed, high IgE, low IgG3 PFT 01/26/24 FEV1 1.23 L (43%), BD 90 mL = 8% Nicotine cessation counseling provided. [place] for quitting nicotine include getting ready, getting support and encouragement, learning new skills and behaviors and being prepared to handle slips. Tips for dealing with cravings provided. Prevention of subsequent illnesses from nicotine addiction discussed. Comorbidities include but are not limited to hypertension, cerebrovascular disease, coronary heart disease, congestive heart failure, hyperlipidemia, COPD/asthma, peptic ulcer disease, esophagitis/gastri tis, and osteoporosis. Therapy options offered include: Quitting by total abstinence Receiving nicotine replacement therapy Undergoing hypnosis Filling a bupropion or varenicline prescription Enrolling in Quit For Life program Registering at www.[employer] Making a call to 5-800-WYTZ-NOW ( ). A strong, clear, personalized message was given to the patient to quit smoking. The patient was urged to set a quit date. We discussed patient's barriers to quitting and I will be of assistance when patient is ready to quit. I encouraged patient to inform friends and family of plans to quit with a request for support. I encouraged the patient to remove all cigarettes from the environment. We reviewed any previous quit attempts and lessons learned from them. I encouraged total abstinence from smoking and advised the patient that drinking alcohol and/or associating with other smokers are associated with failure or relapse. Patient can enroll in [facility]'s smoking cessation class through Yolande Piña RN at . Enrollment is free and classes are held every wednesday of the month from 1:30 pm to 2:30 pm at the conference room next to the cafeteria on the ground floor. Differential diagnoses for pulmonary nodule: 1. malignant tumor 2. benign tumor 3. inflammatory processes 4. infectious process (viral, atypical bacterial, fungal, atypical mycobacterial) The Fleischner Society pulmonary nodule recommendations below pertain to the follow-up and management of indeterminate pulmonary nodules detected incidentally on CT and are published by the Fleischner Society. The guideline does not apply to lung cancer screening, patients younger than 35 years, or patients with a history of primary cancer or immunosuppression. These recommendations reflect the 2017 revision 4, which supersedes prior versions published in 2005 and 2013. Multiple solid nodules <6 mm (<100 mm3) *low-risk patients: no routine follow-up required *high-risk patients: optional CT at 12 months Multiple solid nodules >6 mm (>100 mm3) *low-risk patients: CT at 3-6 months, then consider CT at 18-24 months *high-risk patients: CT at 3-6 months, then CT at 18-[address] 08/2024. Pulmonary rehabilitation may be included in the management of patients with chronic obstructive pulmonary disease (COPD). For respiratory diseases different from COPD, there have been no formal statements regarding patient selection. Pulmonary rehabilitation consists of assessment, exercise, education, and emotional support. It covers the goals of rehabilitation, the techniques of breathing, the necessity of nicotine cessation, the strategies to deal with panic attacks, the rationale of pulmonary medications, and the importance of nutrition. As the patient learns to live with his/her pulmonary condition through exercise and education, the patient will regain confidence with his/her abilities and feel improvement in his/her overall quality of life. Contraindications to pulmonary rehabilitation are infrequent, but include conditions that would place the patient at increased risk during exercise (e.g., uncontrolled cardiac disease, such as chronic heart failure). Patients with comorbid COPD and cardiac disease may be better suited to a cardiac rehabilitation program. The patient's FEV1 is 43%. The patient will be enrolled in pulmonary rehabilitation pending insurance coverage. General concepts of pulmonary rehabilitation were explained. Educational video was shown. Continue Albuterol HFA as needed. Start Breztri AlignAlyticsphere 160/9/4.8 mcg 2 puffs BID. Gargle after use. The patient does not know how to accurately administer the inhalers. Today, the patient was shown how to take these medications. The proper technique for delivering these medications was instructed. The patient expressed a clear understanding and demonstrated back how to use these medications. Without the proper technique, the patient will not reap the benefits of these medications as the contents will not reach the lower airways as intended to be. Adherence to therapy is advocated. Nonadherence may lead to treatment failure, further progression of the condition, and other complications. Hospitals admissions are often the result of individuals not taking prescription medications accurately. Alternatively, greater adherence to medication regimens have shown to lower rates of hospitalization and decrease total medical costs in patients with chronic medical conditions. Advocated influenza vaccination annually and pneumonia vaccination ABEL. Encouraged patient to adjust caloric intake to maintain/achieve ideal body weight, emphasizing on fruits, vegetables, whole grains, and fat-free or low-fat products. These include lean meats, poultry, fish, beans, eggs, and nuts and foods that are low in saturated fats, trans-fats, cholesterol, salt (sodium), and glycemic index. Stressed the importance of regular exercise up to the patient's capacity limits. In this case, we recommend 20 min daily walking, 2 days a week of resistance training. Patient to monitor BP daily and bring records to PCP for further management. Follow-up: 3 months, April 2024 Not available 01/26/2024 13:06:07 05/24/2024 05/24/2024 12/16/2021: TSH/FT4: WNL LIPIDSL TG 160 CMP: ALP 281, AST 102, ALT 92 CBC: WBC 3.6L [email or web address] Not available 05/23/2024 18:46:48 Plan of Treatment Reminders Order Date Submit Date Provider Last Modified By Organization Details Last Modified Time Details Appointments Follow Up 15 2024 09:15A Shi burch MD Not available Not available Not available Lab CMP, serum or plasma 2024 025 [facility], [address] [facility], [place], [address], 05/25/2024 13:08:09 CBC w/ auto diff 2024 025 [facility], [address] [facility], [place], [address], 05/25/2024 13:08:10 TSH + free T4, serum 2024 025 [facility], [address] [facility], [place], [address], 05/25/2024 13:08:06 lipid panel, serum 2024 025 BLANCA [employer] [facility], [address], [place], [address], 05/25/2024 13:08:03 hepatitis panel (A+B+C), acute, serum 2024 025 [facility] [address], [place], [address], 05/25/2024 13:08:05 gamma-glu tamyl transfera se (ggt), serum 2024 025 [facility], [address], [place], [address], 05/25/2024 13:08:08 alpha-1-a ntitrypsi n (aat) phenotype , serum 2023 024 [facility], [address] [place], [address], 12/07/2023 15:19:33 BNP (B-type natriuret ic peptide), serum or plasma 2023 024 [facility], [address] [place], [address], 12/01/2023 14:22:08 ige, total, serum [email or web address] [facility] [address] [facility], [address] [place], [address], 04/12/2024 13:48:46 tb (M tuberculo sis), ifn-gamma macario, blood [email or web address] [facility] [address] [facility], [address] [place], [address], 04/12/2024 13:48:47 eosinophi l count, manual, blood (OBS) 2023 024 [email or web address] 2 [facility], [address] [place], [address], 04/12/2024 13:48:[address] s 1+2+3+4, serum 2023 024 [email or web address] 2 [facility], [address] [place], [address], 04/12/2024 13:48:47 respirato ry allergen panel, [facility] A, serum 2023 024 [email or web address] 2 [facility], [address] [place], [address], 04/12/2024 13:48:47 respirato ry allergen panel - [facility] b 2023 024 [email or web address] 2 [facility], [address] [place], [address], 04/12/2024 13:48:47 CMP, serum or plasma 2023 024 [facility], [address], [place], [address], 04/10/2024 12:00:46 CBC w/ auto diff 2023 024 [facility], [address], [place], [address], 04/10/2024 12:00:46 TSH + free T4, serum 2023 024 [email or web address] [facility], [address], [place], [address], 04/10/2024 12:00:47 lipid panel, serum 2023 024 [email or web address] [facility] [facility] [facility], [address], [place], [address], 04/10/2024 12:00:47 hepatitis panel (A+B+C), acute, serum 2023 024 [email or web address], [address], [place], [address], 04/10/2024 12:00:47 gamma-glu tamyl transfera se (ggt), serum 2023 024 [email or web address], [address], [place], [address], 04/10/2024 12:00:47 CMP, serum or plasma 2022 023 [email or web address], [address], [place], [address], 10/13/2023 08:29:08 CBC w/ auto diff 2022 023 [email or web address], [address], [place], [address], 10/27/2023 08:50:39 TSH + free T4, serum 2022 023 [email or web address], [address], [place], [address], 10/27/2023 08:50:39 lipid panel, serum 2022 023 [email or web address], [address], [place], [address], 10/27/2023 08:50:40 hepatitis panel (A+B+C), acute, serum 2022 023 [email or web address], [address], [place], [address], 10/27/2023 08:50:40 gamma-glu tamyl transfera se (ggt), serum 2022 023 [email or web address], [address], [place], [address], 10/27/2023 08:50:40 Referral gynecolog ist referral 2024 025 [email or web address] Baldev Grey MD, [address] [facility] [address], [place], [address], 05/25/2024 17:16:27 pain managemen t referral [email or web address] Deshaun Marti, [address] [facility] , [address], [place], [address], 05/25/2024 17:17:36 pulmonolo gist referral 2024 025 [email or web address] Yon Rodriguez MD, [address] [facility], [place], [address], 05/25/2024 17:14:13 cardiolog ist referral 2024 025 [email or web address] [place], [address] , [address], [place], [address], 05/25/2024 17:16:28 gastroent erologist referral - Please call patient to schedule. 2024 025 sameera Brziuela MD, [address] [facility], [address], [place], [address], 07/13/2024 15:09:04 pulmonary rehab referral - Please call patient to schedule. 2023 024 [email or web address] 2 [facility], [facility] [facility] [address], [address], 07/04/2024 09:14:02 gynecolog ist referral 2023 024 [email or web address] 2 Baldev Grey MD, [address] [facility] [address], [address], [place], [address], 08/07/2024 09:09:08 pain managemen t referral [email or web address] Deshaun Marti, [address] [facility] , [address], [place], [address], 04/10/2024 12:18:52 pulmonolo gist referral 2023 024 Yon Rodriguez MD, [address], [place], [address], 11/10/2023 13:55:08 cardiolog ist referral 2023 024 [place], [address] [address], [address], [place], [address], 11/01/2023 13:09:48 otolaryng ologist referral 2023 024 [email or web address] Aidan Lombardo MD, [facility] , [address], [place], [address], 04/10/2024 12:18:52 gastroent erologist referral 2023 024 [email or web address] 2 Chelle Ramirez MD, [address], [place], [address], 08/07/2024 09:09:10 pain managemen t referral [address] Deshaun Marti, [address] [facility] , [address], [place], [address], 12/20/2023 09:27:22 otolaryng ologist referral 2022 023 [email or web address] Aidan Lombardo MD, [address] [place] [address] , [address], [place], [address], 10/27/2023 08:22:41 Procedures None recorded. Surgeries None recorded. Imaging US, liver - Please call patient to schedule. 2024 025 [facility], [address], [place], [address], 06/26/2024 11:53:46 MAMMO, screening , digital, bilateral 2023 024 [facility] (Imaging), [facility] [address], [place], [address], 03/02/2024 11:37:37 US, liver [address] (Imaging), [facility] [facility] [address], [place], [address], 05/01/2024 14:18:23 MAMMO, screening , digital, bilateral [address] (Imaging), [address] [facility] [address], [place], [address], 10/27/2023 08:50:02 LDCT, chest, for lung cancer screening [address] (Im[address]), [address] [facility] [address], [place], [address], 11/14/2023 15:29:18 Medication Orders Breztri Aerospher e 160 mcg-9mcg- 4.8mcg/ac tuation HFA aerosol inhaler 2024 025 [id number], [address] [place], [place], [id number], 05/24/2024 10:51:17 amoxicill in 875 mg-potass ium clavulana te 125 mg tablet 2024 025 [id number], [address] [facility], [place], [place], [id number], 05/24/2024 10:51:17 Breztri Aerospher e 160 mcg-9mcg- 4.8mcg/ac tuation HFA aerosol inhaler 2023 024 [id number], [address], [place], [id number], 01/26/2024 13:07:12 albuterol sulfate HFA 90 mcg/actua tion aerosol inhaler 2023 024 BLANCA [facility]45376, [address], [place], [id number], 01/26/2024 13:07:13 amoxicill in 875 mg-potass ium clavulana te 125 mg tablet 2022 023 [email or web address] [facility] #11105, [address], [place], [id number], 01/25/2024 17:23:33 Medrol (Trent) 4 mg tablets in a dose pack 2022 023 [email or web address] [facility]67, [address], [place], [id number], 10/13/2023 10:03:53 Patient TargetsNo targets recorded. Patient Instructions Encounter Date Encounter Id Patient Instructions Last Modified By Organization Details Last Modified Time 10/13/2023 [id number] dementia rating scale-2* [email or web address] 2 Not available 10/13/2023 10:42:13 alcohol misuse* stevewala 2 Not available 10/13/2023 10:42:13 depression screening* stevewala 2 Not available 10/13/2023 10:42:12 Timed Up and Go test (TUG)* [email or web address] 2 Not available 10/13/2023 10:42:12 multi-dimensiona l health assessment questionnaire* Not available 10/18/2023 15:51:10 advance directiv es: care instructions [email or web address] 2 Not available 10/13/2023 10:42:13 advance care planning: care instructions [email or web address] 2 Not available 10/13/2023 10:42:13 [place] Advance Directives [email or web address] 2 Not available 10/13/2023 10:42:12 Personalized Hea lt Plan and Screening Recommendations Advance Directives - Do you have one? No You have indicated that you are capable of preparing your advance care directive Advance Directives - Do we have your advance directive on file in your health record? Primary Prevention/Interven tion (prevents or decreases the chance of common diseases from occurring) Smoking Risk: Smoker Refer to attached smoking cessation handouts Alcohol Misuse Screening: Negative Weight: Appropriate Physical activity: Need more exercise/physical activity decrease sitting time to no more than 5hr/day Nutrition: Good Average Refer to attached handout Heart-Healthy Diet: After Your Visit Refer to attached handout DASH Diet: After Your Visit Fall Risk (screened today): High Refer to attached handout Preventing Falls: After your Visit Vaccines Pneumococcal: Ordered Recommended today Influenza: Your next one in the fall of this year Chronic Disease Risks Stroke: Low Risk Intermediate Risk Heart Attack: Low risk Intermediate Risk Clogging of the Arteries: Low risk Intermediate Risk Diabetes: High Risk I have no recommendations Ref er to attached handout P re-diabetes: After Your Visit Drastically limit sugar and products made with any type of flour (bread, pasta, cereal, cookies, crackers, etc.) Secondary Prevention/Interven tion (detects treatable diseases before they may cause symptoms, disability, or ) Breast Cancer Screening with mammogram: Your next mammogram: Ordered Cervical/Uterine/Ov patience Cancer Screening: Your next PAP/pelvic in: Referral to [facility] Osteoporosis Screening: Date Screening Last Performed: 08/10/2022 Colon Cancer Screening: Colonoscopy Date Screening Last Performed: 08/04/2021 Dementia Risk: Low I have no recommendations Depression Screening: Negative Positive Recommend additional evaluation and/or treatment as noted above Recommend follow appointment to further evaluate [email or web address] Not available 10/13/2023 10:40:47 12/01/2023 [id number] complete PFT w/ post bronchodilator spirometry* [email or web address] Not available 01/24/2024 12:58:46 Reason for Referral Pain Management Referral for Low back pain Referring Physician: Corky Heredia, Internal Medicine, Encounter Date: 04/14/2023 Ramp Lead Referral fo r Sinusitis Referring Physician: Corky Heredia Internal Medicine, Encounter Date: 04/14/2023 Pain Management Referral for Low back pain Referring Physician: Corky Heredia Internal Medicine, Encounter Date: 10/13/2023 Ramp Lead Referral fo r Sinusitis Referring Physician: Corky Heredia Internal Medicine, Encounter Date: 10/13/2023 Wash Operator Referral for Gy necologic examination Referring Physician: Corky Heredia [facility], Encounter Date: 10/13/2023 Venetian Blind Machine Operator Referral for Liver enzymes level above reference range Referring Physician: Corky Heredia Internal [facility], Encounter Date: 10/13/2023 Student Counselor Referral for C hronic obstructive pulmonary disease Referring Physician: Elin Mao Medicine, Encounter Date: 10/13/2023 Grading Machine Feeder Referral for Sc reening for cardiovascular system disease Referring Physician: Elin Mao Medicine, Encounter Date: 10/13/2023 Pulmonary Rehab Referral for Severe chronic obstructive pulmonary disease Please call patient to schedule. Referring Physician: Yon Rodriguez, Pulmonary Disease, Encounter Date: 01/26/2024 Pain Management Referral for Low back pain Referring Physician: Elin Mao Medicine, Encounter Date: 05/24/2024 Wash Operator Referral for Gy necologic examination Referring Physician: Corky Heredia Internal Medicine, Encounter Date: 05/24/2024 Venetian Blind Machine Operator Referral for Liver enzymes level above reference range Please call patient to schedule. Referring Physician: Elin Mao Medicine, Encounter Date: 05/24/2024 Student Counselor Referral for C hronic obstructive pulmonary disease Referring Physician: Elin Mao, Encounter Date: 05/24/2024 Grading Machine Feeder Referral for Sc reening for cardiovascular system disease Referring Physician: Elin Mao Medicine, Encounter Date: 05/24/2024 Results Created Date Observation Date Name Description Value Unit Range Abnormal Flag Note LastModifiedBy Organization Detail LastModifiedTime 05/25/1905/25/2024 LIPID PANEL , STAND JER cholesterol, total 141 mg/dL <200 normal Not Available [employer] [address] [address] [place], [address], 05/25/2024 13:08:03 05/25/1905/25/2024 LIPID PANEL , STAND JRE HDL cholesterol 66 mg/dL > or = 50 normal Not Available [facility] [address] [address] [place], [address], 05/25/2024 13:08:03 05/25/1905/25/2024 LIPID PANEL , STAND JER triglyceride s 76 mg/dL <150 normal Not Available [employer] [facility] [address] [address] [place], [address], 05/25/2024 13:08:03 05/25/19 25 05/25/2024 LIPID PANEL , STAND JER LDL-choleste rol 59 mg/dL _(carine c) normal Refer ence range : <100 Wilbert able range <100 mg/dL for prima ry preve ntion ; <70 mg/dL for patie nts with CHD or diabe tic patie nts with > or = 2 CHD risk facto rs. LDL-C is now calcu lated using the Linda kurtz-Hop kins dinora mcfarlane n, which is a valid ated novel laurao d nicole benites r accur acy than the Fried van equat ion in the estim ation of LDL-C . Linda kurtz SS et al. BRAXTON. 2013; 310(1 9): 2061- 2068 (http ://ed ucati on.Qu Nabeel lopez tics. com/f aq/FA Q164) Not Available [facility] [address] [address], [place], [address], 05/25/2024 13:08:03 05/25/19 25 05/25/2024 LIPID PANEL , STAND JER chol/HDLC ratio 2.1 (calc ) <5.0 normal Not Available [facility] [address] [address] [place], [address], 05/25/2024 13:08:03 05/25/19 25 05/25/2024 LIPID PANEL , STAND JER non HDL cholesterol 75 mg/dL _(carine c) <130 normal For patie nts with diabe mariela plus 1 major ASCVD risk facto r, treat ing to a non-H DL-C goal of <100 mg/dL (LDL- C of <70 mg/dL ) is consi aishwaryad a colin cooper optio n. Not Available [facility] [address] [address] [place], [address], 05/25/2024 13:08:03 05/25/19 25 05/25/2024 HEPAT ITIS PANEL , ACUTE W/REF WHITNEY TO CONFI RMATI ON hepatitis A IgM NON-RE ACTIVE non-re active normal For addit ional infor karla huynh e refer to http: //edu catfredrick n.que stdia gnost ics.c om/fa q/FAQ 202 (This link is being provi ded for infor matio nal/ educa geovanny l purpo ses only. ) Not Available [facility] [address] [address] [place], [address], 05/25/2024 13:08:05 05/25/19 25 05/25/2024 HEPAT ITIS PANEL , ACUTE W/REF WHITNEY TO CONFI RMATI ON hepatitis B surface antigen NON-RE ACTIVE non-re active normal For addit ional infor matkarla bell e refer to http: //edu catfredrick n.que stdia gnost ics.c om/fa q/FAQ 202 (This link is being provi ded for infor matio nal/ educa geovanny l purpo ses only. ) Not Available [facility] [address] [address] [place], [address], 05/25/2024 13:08:05 05/25/19 25 05/25/2024 HEPAT ITIS PANEL , ACUTE W/REF WHITNEY TO CONFI RMATI ON hepatitis B core antibody (IgM) BORDER LINE non-re active abnormal For addit ional infor karla huynh e refer to http: //[facility] kelli rachel stdia gnost ics.c om/fa q/FAQ 202 (This link is being provi ded for infor matio nal/ educa geovanny l purpo ses only. ) Not Available [address], [address], 05/25/2024 13:08:05 05/25/19 25 05/25/2024 HEPAT ITIS PANEL , ACUTE W/REF WHTINEY TO CONFI RMATI ON hepatitis C antibody NON-RE ACTIVE non-re active normal HCV antib yordan was non-r eacti ve. There is no labor atory evide nce of HCV infec tion. In most cases , no furth er actio n is requi red. Howev er, if recen t HCV expos ure is suspe cted, a test for HCV RNA (test code 59611 ) is sugge sted. For addit ional infor radha acosta e refer to http: //[facility] kelli rachel stdia gnost ics.c om/fa q/FAQ 22v1 (This link is being provi ded for infor matio nal/ educa geovanny l purpo ses only. ) Not Available [address], [address], 05/25/2024 13:08:05 05/25/19 25 05/25/2024 TSH+F REE T4 TSH 1.06 mIU/L 0.40-4 .50 normal Not Available [facility] [address], [address], 05/25/2024 13:08:06 05/25/19 25 05/25/2024 TSH+F REE T4 T4, free 1.0 NG/dL 0.8-1. 8 normal Not Available [facility] [address], [address], 05/25/2024 13:08:06 05/25/19 25 05/25/2024 GGT GGT 576 U/L 3-65 high Not Available [address], [address], 05/25/2024 13:08:07 05/25/19 25 05/25/2024 COMPR EHENS VAISHALI METAB OLIC PANEL glucose 90 mg/dL 65-99 normal Fasti ng refer ence inter mora Not Available [address], [address], 05/25/2024 13:08:09 05/25/19 25 05/25/2024 COMPR EHENS VAISHALI METAB OLIC PANEL urea nitrogen (BUN) 7 mg/dL 7-25 normal Not Available [address], [address], 05/25/2024 13:08:09 05/25/19 25 05/25/2024 COMPR EHENS VAISHALI METAB OLIC PANEL creatinine 0.56 mg/dL 0.50-1 .05 normal Not Available [address], [address], 05/25/2024 13:08:09 05/25/19 25 05/25/2024 COMPR EHENS VAISHALI METAB OLIC PANEL eGFR 101 mL/mi n/1.7 3m2 > or = 60 normal Not Available [address], [address], 05/25/2024 13:08:09 05/25/19 25 05/25/2024 COMPR EHENS VAISHALI METAB OLIC PANEL BUN/creatini ne ratio SEE NOTE: (calc ) 6-22 Not Repor sita: BUN and Creat inine are withi n refer ence range . Not Available [address], [address], 05/25/2024 13:08:09 05/25/19 25 05/25/2024 COMPR EHENS VAISHALI METAB OLIC PANEL sodium 132 mmol/ L 135-14 6 low Not Available [address], [address], 05/25/2024 13:08:09 05/25/19 25 05/25/2024 COMPR EHENS VAISHALI METAB OLIC PANEL potassium 3.8 mmol/ L 3.5-5. 3 normal Not Available [address], [address], 05/25/2024 13:08:09 05/25/19 25 05/25/2024 COMPR EHENS VAISHALI METAB OLIC PANEL chloride 95 mmol/ L 98-110 low Not Available [address], [address], 05/25/2024 13:08:09 05/25/19 25 05/25/2024 COMPR EHENS VAISHALI METAB OLIC PANEL carbon dioxide 30 mmol/ L 20-32 normal Not Available [address], [address], 05/25/2024 13:08:09 05/25/19 25 05/25/2024 COMPR EHENS VAISHALI METAB OLIC PANEL calcium 8.7 mg/dL 8.6-10 .4 normal Not Available [address], [address], 05/25/2024 13:08:09 05/25/19 25 05/25/2024 COMPR EHENS VAISHALI METAB OLIC PANEL protein, total 6.3 g/dL 6.1-8. 1 normal Not Available [address], [address], 05/25/2024 13:08:09 05/25/19 25 05/25/2024 COMPR EHENS VAISHALI METAB OLIC PANEL albumin 3.6 g/dL 3.6-5. 1 normal Not Available [address], [place], [address], 05/25/2024 13:08:09 05/25/19 25 05/25/2024 COMPR EHENS VAISHALI METAB OLIC PANEL globulin 2.7 g/dL_ (calc ) 1.9-3. 7 normal Not Available [address], [address], 05/25/2024 13:08:09 05/25/19 25 05/25/2024 COMPR EHENS VAISHALI METAB OLIC PANEL albumin/glob ulin ratio 1.3 (calc ) 1.0-2. 5 normal Not Available [address], [address], 05/25/2024 13:08:09 05/25/19 25 05/25/2024 COMPR EHENS VAISHALI METAB OLIC PANEL bilirubin, total 0.4 mg/dL 0.2-1. 2 normal Not Available [address], [address], 05/25/2024 13:08:09 05/25/19 25 05/25/2024 COMPR EHENS VAISHALI METAB OLIC PANEL alkaline phosphatase 353 U/L 37-153 high Not Available [address], [address], 05/25/2024 13:08:09 05/25/19 25 05/25/2024 COMPR EHENS VAISHALI METAB OLIC PANEL AST 51 U/L 10-35 high Not Available [address], [address], 05/25/2024 13:08:09 05/25/19 25 05/25/2024 COMPR EHENS VAISHALI METAB OLIC PANEL ALT 80 U/L 6-29 high Not Available [address], [address], 05/25/2024 13:08:09 05/25/19 25 05/25/2024 CBC (INCL UDES DIFF/ PLT) white blood cell count 6.5 thous and/u L 3.8-10 .8 normal Not Available [address], [address], 05/25/2024 13:08:10 05/25/19 25 05/25/2024 CBC (INCL UDES DIFF/ PLT) red blood cell count 4.31 shailesh on/uL 3.80-5 .10 normal Not Available [address], [address], 05/25/2024 13:08:10 05/25/19 25 05/25/2024 CBC (INCL UDES DIFF/ PLT) hemoglobin 13.5 g/dL 11.7-1 5.5 normal Not Available [address], [address], 05/25/2024 13:08:10 05/25/19 25 05/25/2024 CBC (INCL UDES DIFF/ PLT) hematocrit 40.7 % 35.0-4 5.0 normal Not Available [address], [address], 05/25/2024 13:08:10 05/25/19 25 05/25/2024 CBC (INCL UDES DIFF/ PLT) MCV 94.4 fL 80.0-1 00.0 normal Not Available [address], [address], 05/25/2024 13:08:10 05/25/19 25 05/25/2024 CBC (INCL UDES DIFF/ PLT) MCH 31.3 pg 27.0-3 3.0 normal Not Available [address], [address], 05/25/2024 13:08:10 05/25/19 25 05/25/2024 CBC (INCL UDES DIFF/ PLT) MCHC 33.2 g/dL 32.0-3 6.0 normal For adult s, a sligh t decre ase in the calcu lated MCHC value (in the range of 30 to 32 g/dL) is most likel y not clini davey signi adonis t; ramy er, it shoul d be inter prete d with cauti on in corre lat n with other red cell sharri eters and the patie nt's clini carine condi tion. Not Available [employer] [address], [address], 05/25/2024 13:08:10 05/25/19 25 05/25/2024 CBC (INCL UDES DIFF/ PLT) RDW 11.8 % 11.0-1 5.0 normal Not Available [address], [address], 05/25/2024 13:08:10 05/25/19 25 05/25/2024 CBC (INCL UDES DIFF/ PLT) platelet count 251 thous and/u L 140-40 0 normal Not Available [facility] [facility] [facility] [address], [address], 05/25/2024 13:08:10 05/25/19 25 05/25/2024 CBC (INCL UDES DIFF/ PLT) MPV 10.7 fL 7.5-12 .5 normal Not Available [employer] [address], [address], 05/25/2024 13:08:10 05/25/19 25 05/25/2024 CBC (INCL UDES DIFF/ PLT) absolute neutrophils 4654 cells /uL 1500-7 800 normal Not Available [employer] [address], [address], 05/25/2024 13:08:10 05/25/19 25 05/25/2024 CBC (INCL UDES DIFF/ PLT) absolute lymphocytes 1294 cells /uL 850-39 00 normal Not Available [employer] [address], [address], 05/25/2024 13:08:10 05/25/19 25 05/25/2024 CBC (INCL UDES DIFF/ PLT) absolute monocytes 442 cells /uL 200-95 0 normal Not Available [address], [address], 05/25/2024 13:08:10 05/25/19 25 05/25/2024 CBC (INCL UDES DIFF/ PLT) absolute eosinophils 78 cells /uL 15-500 normal Not Available [address], [address], 05/25/2024 13:08:10 05/25/19 25 05/25/2024 CBC (INCL UDES DIFF/ PLT) absolute basophils 33 cells /uL 0-200 normal Not Available [address], [address], 05/25/2024 13:08:10 05/25/19 25 05/25/2024 CBC (INCL UDES DIFF/ PLT) neutrophils 71.6 % normal Not Available [facility] [address], [address], 05/25/2024 13:08:10 05/25/19 25 05/25/2024 CBC (INCL UDES DIFF/ PLT) lymphocytes 19.9 % normal Not Available [address], [address], 05/25/2024 13:08:10 05/25/19 25 05/25/2024 CBC (INCL UDES DIFF/ PLT) monocytes 6.8 % normal Not Available [address], [address], 05/25/2024 13:08:10 05/25/19 25 05/25/2024 CBC (INCL UDES DIFF/ PLT) eosinophils 1.2 % normal Not Available [address], [address], 05/25/2024 13:08:10 05/25/19 25 05/25/2024 CBC (INCL UDES DIFF/ PLT) basophils 0.5 % normal Not Available [facility] [address] [address] , [place], [address], 05/25/2024 13:08:10 07/29/19 24 07/29/2023 XR, lumba r spine No observ ation record ed. [address] [address], [place], [address], 03/07/2024 16:44:15 07/29/19 24 07/29/2023 XR, cervi carine spine No observ ation record ed. [address] [address], [place], [address], 03/07/2024 16:44:16 07/29/19 24 07/29/2023 XR, thora cic spine No observ ation record ed. [address] [address], [place], [address], 03/07/2024 16:44:16 08/05/19 24 08/04/2023 LDCT, chest , for lung cance r scree yennifer No observ ation record ed. [address] [address], [place], [address], 03/07/2024 16:44:17 11/03/19 24 11/03/2023 , [facility] ardio gram No observ ation record ed. [address] [facility] [address], [place], [address], 03/07/2024 16:44:18 02/01/20 24 01/26/2024 compl ete PFT w/ post [facility] hodil ator jonny metry * No observ ation record ed. [facility] (One Call Scheduling) [address] [facility], [place], [address], 02/01/2024 11:08:02 03/02/20 24 03/02/2024 MAMMO , scree yennifer, digit al, bilat eral No observ ation record ed. [email or web address] [facility] [address] [place], [address], 03/07/2024 16:44:18 03/29/20 24 03/29/2024 MRI, lumba r spine , w/o contr ast No observ ation record ed. [facility] [address], [address], 05/01/2024 14:16:40 Result Notes None recorded. Problems Name Problem SNOMED Code Status Onset Date Resolution Date Notes Provider Name and Address Organization Details Recorded Time Osteoporos is 44617118 Active 2022 Zoe gaona, [facility] 3 10:58:09 Decreased hearing 975900010 Active 2022 Zoe gaona [facility] 3 16:57:42 Smoker 22538910 Active 2022 Corky novak MD [address] [facility] [facility] [address], [place], [address] , [employer] 3 17:17:46 Chronic recurrent major depressive disorder 7932580 Active 2022 Corky novak MD [address] [facility] [facility] [address], [place], [address] , [facility] 3 17:19:19 Aneurysm of thoracic aorta 209031709 Active 2023 Corky novak MD [address] [facility] [facility] [address], [place], [address] , [employer] 4 10:29:14 Chronic depression 649166044 Completed 201901/30/2020 [facility] Available [facility] 3 03:23:08 Vitamin D deficiency 60401646 Active 2021 Not Available [facility] 3 03:23:08 Anxiety 71896620 Active 2019 Not Available [facility] 3 03:23:08 Hyperlipid emia 54087263 Active 2021 Not Available [facility] 3 03:23:09 Allergic rhinitis 53188150 Active Not Available [facility] 3 03:23:09 Liver enzymes level above reference range 984136629 Active 2021 Not Available [facility] 3 03:23:09 Dyspnea on exertion 65815758 Active 2023 Yon Rodriguez MD [address], [place], [address] , [facility] 4 12:52:54 Severe chronic obstructiv e pulmonary disease 056801696 Active 2023 Yon Rodriguez MD [address], [address], [place], [address] , [facility] 4 13:04:09 Low back pain 868348942 Active 2023 Madalyn Calzada CMA null, [place] - [facility] 4 15:34:43 Sinusitis 53529033 Active 2024 Corky novak MD [address], [address], [place], [address] , [facility] 5 10:49:57 Essential hypertensi on 42208010 Active 2024 Corky novak MD [address], [address], [place], [address] , [facility] 5 10:53:17 Type B viral hepatitis 04859092 Active 2024 NATHAN Dowell null, [place] - [facility] 5 17:10:10 Notes:Medical History: Anxie ty/Depression R>L hearing loss Rhinitis with postnasal drip to multiple environmental allergens Eosinophils 210/uL Nicotine use 4 cm ascending aorta ectasia EF 67% Mild AR/MR/TR PASP 30 mmHg Hyperlipidemia Thoracic aortic aneurysm Vit D deficiency Osteoporosis Right rib fractures Cervicothoracolumbar spondylosis Dextroscoliosis Sacroiliac OA Procedure History: L4-L5 laminectomies 1996 Cholecystectomy 2002 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 Procedures Surgical History Date Name Laterality Status Provider Name and Address Organization Details Recorded Time 10/13/19 Medicare Wellness CPT Code, subsequent completed Aly Chin LPN [facility] 10/11/2023 18:30:47 10/13/19 24 Advanced Care Planning completed Aly Chin LPN [facility] 10/13/2023 10:35:07 10/29/19 17 Colonoscopy completed Not Available [facility] 07/02/19 23 03:15:41 05/03/19 11 Date of Last Colonoscopy completed Not Available [facility] 07/01/2022 03:15:36 08/31/19 03 Gallbladder Surgery completed Not Available [facility] 07/01/2022 03:15:41 08/20/18 97 Back Surgery completed Not Available [facility] 023 03:15:41 Breast Biopsy completed Not Available [facility] 07/01/2022 03:15:41 Imaging Results Imaging Date Name Status LastModified by Organization Details LastModified Time 07/29/2023 XR, lumbar spine completed [address], [address], 03/07/2024 16:44:15 07/29/2023 XR, cervical spine completed [email or web address] [facility] [address], [address], 03/07/2024 16:44:16 07/29/2023 XR, thoracic spine completed [email or web address] [facility] [address], [address], 03/07/2024 16:44:16 08/04/2023 LDCT, chest, for lung cancer screening completed [address], [address], 03/07/2024 16:44:17 11/03/2023 US, echocardiogram completed [email or web address] [facility] [address], [place], [address], 03/07/2024 16:44:18 01/26/2024 complete PFT w/ post bronchodilator spirometry* completed [facility] (One Call Scheduling) [address] [place], [address], 02/01/2024 11:08:02 03/02/2024 MAMMO, screening, digital, bilateral completed [email or web address] [facility] [address] [place], [address], 03/07/2024 16:44:18 03/29/2024 MRI, lumbar spine, w/o contrast active [email or web address] [facility] [address], [address], 05/01/2024 14:16:40 Procedure Notes None recorded. Medical Equipment None Reported. Allergies Allergen ID Allergen Name Allergen Category Reaction Reaction Severity Criticality Documentation Date Start Date Code Code System Note Provider Name and Address Organization Details Recorded Time 6179 naproxen medicatio n other Not available Not available 07/01/2022 7258 RxNorm GI distr ess NATHAN Dowell, [place] - [facility] [place] [employer] 3 10:06:38 Medications Name Sig Start Date Stop Date Status Note LastModified by Organization Details LastModified Time celecoxib 200 mg capsule TAKE 1 CAPSULE BY MOUTH EVERY DAY WITH MEALS NEEDED active Not Available Not Available No t Available cyclobenz aprine 10 mg tablet TAKE 1 TABLET BY MOUTH TWICE DAILY NEEDED active Not Available Not Available No t Available amoxicill in 500 mg capsule 11/09 completed Not Available Not Available Not Available prednison e 10 mg tablet Take by oral route. active Not Available Not Available No t Available gabapenti n 600 mg tablet TAKE 2 TABLETS BY MOUTH ONCE IN THE EVENING active Not Available Not Available No t Available doxycycli ne hyclate 100 mg capsule TAKE 1 CAPSULE PO BID FOR 10 DAYS active Not Available Not Available No t Available sulfasala zine 500 mg tablet TAKE 2 TABLETS BY MOUTH TWICE DAILY 04/14 completed pt stopped due to abd pain Not Available Not Available Not Available trazodone 50 mg tablet TAKE 1 TABLET BY MOUTH EVERY DAY NEEDED active Not Available Not Available No t Available cetirizin e 10 mg tablet TAKE 1 TABLET BY MOUTH EVERY DAY NEEDED 10/12 completed Not Available Not Available Not Available ibuprofen 800 mg tablet Take 1 tablet 3 times a day by oral route. active Not Available Not Available No t Available alprazola m 1 mg tablet TAKE ONE TABLET BY MOUTH EVERY NIGHT AT BEDTIME 07/22 completed Not taking this Not Available Not Available Not Available hydrocodo ne 5 mg-acetam inophen 325 mg tablet TAKE 1 TABLET BY MOUTH TWICE DAILY NEEDED 10/12 completed Not Available Not Available Not Available meloxicam 15 mg tablet TAKE 1 TABLET BY MOUTH EVERY DAY 06/23 completed Not Available Not Available Not Available prednison e 20 mg tablet TAKE 1 TABLET BY MOUTH DAILY 06/23 completed Not Available Not Available Not Available prednison e 5 mg tablet TAKE 1 TO 3 TABLETS BY MOUTH DAILY 04/14 completed Not Available Not Available Not Available Zithromax Z-Trent 250 mg tablet TAKE 2 TABLETS (500 MG) BY ORAL ROUTE ONCE DAILY FOR 1 DAY THEN 1 TABLET (250 MG) BY ORAL ROUTE ONCE DAILY FOR 4 DAYS 04/14 completed Not Available Not Available Not Available azathiopr ine 50 mg tablet 10/15 completed Not Available Not Available Not Available hydrocodo ne 10 mg-acetam inophen 325 mg tablet TAKE 1 TABLET BY MOUTH FOUR TIMES DAILY NEEDED active Not Available Not Available No t Available peg-elect rolyte solution 420 gram oral solution 05/11 completed Not Available Not Available Not Available leflunomi de 20 mg tablet Take 1 tablet every day by oral route. 10/[address] [facility] BI[facility] SPECIAL[facility] Dillan Ramirez 09/11/19 22Is to also start Edith injectio ns Not Available Not Available Not Available tramadol 50 mg tablet TAKE 1 TO 2 TABLETS BY MOUTH WITH OTC TYLENOL THREE TIMES DAILY FOR BETTER PAIN CONTROL 10/12 completed Not Available Not Available Not Available meloxicam 7.5 mg tablet TAKE 2 TABLETS BY MOUTH ON DAY 1 THEN TAKE 1 TABLET BY MOUTH ONCE DAILY THEREAFT ER. 02/21 /2022 completed Not Available Not Available Not Available amoxicill in 875 mg tablet active Not Available Not Available Not Available methotrex ate sodium 2.5 mg tablet TAKE 5 TABLETS BY MOUTH IN THE MORNING AND 5 TABLETS IN THE EVENING ONCE EVERY 7 DAYS 10/15 completed Not Available Not Available Not Available oxycodone -acetamin ophen 10 mg-325 mg tablet TAKE 1 TABLET BY MOUTH EVERY 6 HOURS NEEDED FOR PAIN 07/22 completed Not Available Not Available Not Available benzonata te 100 mg capsule TK 1 C PO TID FOR 7 DAYS PRN 11/14 completed Not Available Not Available Not Available doxycycli ne monohydra te 100 mg capsule TAKE 1 CAPSULE BY MOUTH TWICE DAILY 06/23 completed Not Available Not Available Not Available hydrocodo ne 7.5 mg-acetam inophen 325 mg tablet TAKE 1 TABLET BY MOUTH THREE TIMES DAILY NEEDED 01/24 completed Not Available Not Available Not Available halobetas ol propionat e 0.05 % topical ointment 10/23 completed Not Available Not Available Not Available Advair Diskus 500 mcg-50 mcg/dose powder for inhalatio n Inhale 1 puff twice a day by inhalati on route. 01/21 completed Not Available Not Available Not Available gabapenti n 300 mg capsule TAKE 1 CAPSULE BY MOUTH THREE TIMES DAILY NEEDED 05/24 completed Not Available Not Available Not Available diclofena c sodium 75 mg tablet,de layed release 04/14 completed Not Available Not Available Not Available folic acid 1 mg tablet 10/15 completed Not Available Not Available Not Available mont[facility] 10 mg tablet TAKE 1 TABLET BY MOUTH DAILY NEEDED 2024 active Not Available Not Available Not Avai lable morphine ER 15 mg tablet,ex tended release 02/16 completed Not Available Not Available Not Available acetamino phen 300 mg-codein e 60 mg tablet TAKE 1 TABLET BY MOUTH FOUR TIMES DAILY NEEDED 10/12 completed Not Available Not Available Not Available pravastat in 20 mg tablet TK 1 T PO QD 03/27 completed Not Available Not Available Not Available hydroxych loroquine 200 mg tablet 04/14 completed Not Available Not Available Not Available Nasonex 50 mcg/actua tion [place] 2 sprays each nostril once daily active Not Available Not Available No t Available ibuprofen 600 mg tablet Take 1 tablet twice daily as needed. Take with food active Not Available Not Available No t Available oxycodone -acetamin ophen 7.5 mg-325 mg tablet TAKE 1 TABLET BY MOUTH EVERY 6 HOURS FOR 21 DAYS 01/20 completed Not Available Not Available Not Available methylpre dnisolone 4 mg tablets in a dose pack FOLLOW PACKAGE DIRECTIO NS 10/12 completed Not Available Not Available Not Available albuterol sulfate HFA 90 mcg/actua tion aerosol inhaler INHALE 1 PUFF BY MOUTH EVERY 4 HOURS NEEDED active Not Available Not Available No t Available methadone 5 mg tablet 04/14 completed Not Available Not Available Not Available fluticaso ne propionat e 50 mcg/actua tion nasal spray,db pension SHAKE LQ AND U 1 SPR IEN QD active Not Available Not Available No t Available loratadin e 10 mg tablet TK 1 T PO D PRN 11/14 completed Not Available Not Available Not Available amoxicill in 875 mg-potass ium clavulana te 125 mg tablet TAKE 1 TABLET BY MOUTH TWICE DAILY FOR 7 DAYS active Not Available Not Available No t Available Pneumovax -23 25 mcg/0.5 mL injection syringe ADM 0.5ML IM UTD 05/11 completed Not Available Not Available Not Available cyclobenz aprine 5 mg tablet TAKE 1 TO 3 TABLETS BY MOUTH EVERY NIGHT 10/12 completed Not Available Not Available Not Available rosuvasta tin 20 mg tablet TAKE 1 TABLET BY MOUTH EVERY DAY active Not Available Not Available No t Available nitrofura ntoin monohydra te/macroc rystals 100 mg capsule 04/14 completed Not Available Not Available Not Available duloxetin e 60 mg capsule,d elayed release TAKE ONE CAPSULE BY MOUTH EVERY DAY. active Not Available Not Available No t Available magnesium 1 tab daily 11/13 completed Not Available Not Available Not Available Vitamin D 1 tab daily 11/13 completed Not Available Not Available Not Available Centrum 1 tab daily 11/13 completed Not Available Not Available Not Available Humira 04/14 completed Not Available Not Available Not Available Complex B-50 1 tab daily 11/13 completed Not Available Not Available Not Available hydrochlo rothiazid e 12.5 mg tablet Take 1 tablet(s ) EVERY DAY by oral route. prn active Not Available Not Available No t Available oxycodone 10 mg tablet TK 1 T PO Q 6 H PRN FOR PAIN 09/17 completed Not Available Not Available Not Available Zipsor 25 mg capsule Take 1 capsule twice a day by oral route as needed for 30 days. 06/23 completed Not Available Not Available Not Available Prolia 60 mg/mL subcutane ous syringe Inject 1 mL by subcutan eous route. 10/12 completed Not Available Not Available Not Available Dulera 200 mcg-5 mcg/actua tion HFA aerosol inhaler INHALE ONE PUFF BY MOUTH TWICE DAILY active Not Available Not Available No t Available krill oil 1 tab daily 11/13 completed Not Available Not Available Not Available lidocaine 5 % topical ointment 10/15 completed Not Available Not Available Not Available Fluvirin 9810-1234 45 mcg (15 mcg x 3)/0.5 mL intramusc ular suspensio n INJECT 0.5 ML INTRAMUS CULARLY DIRECTED . active Not Available Not Available No t Available Cosentyx 10/12 completed Not Available Not Available Not Available Fluvirin 9319-0277 45 mcg (15 mcg x 3)/0.5 mL intramusc ular suspensio n active Not Available Not Available Not Available Vitamin B12 1 tab daily 01/14 completed Not Available Not Available Not Available Narcan 4 mg/actuat ion nasal spray CALL 911. SPR CONTENTS OF ONE SPRAYER (0.1ML) OF OPIOID EMERGENC Y PERSIST, ALTERNAT E NOSTRILS INTO ONE NOSTRIL. REPEAT IN 2-3 MIN IF SYMPTOM 01/20 completed Not Available Not Available Not Available Fluvirin 6689-9342 45 mcg (15 mcg x 3)/0.5 mL intramusc ular suspensio n ADM 0.5ML IM UTD 05/11 completed Not Available Not Available Not Available Fluvirin 8998-3142 45 mcg (15 mcg x 3)/0.5 mL intramusc ular suspensio n ADM 0.5ML IM UTD 05/11 completed Not Available Not Available Not Available Shingrix (PF) 50 mcg/0.5 mL intramusc ular suspensio n, kit 11/14 completed Not Available Not Available Not Available Afluria Quad (PF) 60 mcg (15 mcg x 4)/0.5 mL IM syringe active Not Available Not Available Not Available Flucelvax Quad (PF) 60 mcg (15 mcg x 4)/0.5 mL IM syringe active Not Available Not Available Not Available Fluarix Quad (PF) 60 mcg (15 mcg x 4)/0.5 mL IM syringe ADM 0.5ML IM UTD active Not Available Not Available No t Available Breztri Aerospher e 160 mcg-9mcg- 4.8mcg/ac tuation HFA aerosol inhaler Inh[place] 2 puffs twice a day by inhalati on route. 2024 active Not Available Not Available Not Avai lable Vitals Date Recorded Body weight Body mass index (BMI) Body height Body temperature Heart rate Systolic blood pressure Diastolic blood pressure Provider Name and Address Organization Details Last Updated DateTime 3 48539.9 3 g 23.3 kg/m2 180.34 cm 97.4 [degF] 72 /min 138 mm[Hg] 82 mm[Hg] NAHTAN Dowell [facility] [employer] 3 10:09:42 Date Recorded Body height Body mass index (BMI) Body weight Body temperature Heart rate Systolic blood pressure Diastolic blood pressure Provider Name and Address Organization Details Last Updated DateTime 4 180.34 cm 21.3 kg/m2 55927.6 3 g 97.6 [degF] 78 /min 120 mm[Hg] 64 mm[Hg] NATHAN Dowell [facility] [employer] [facility] 4 10:06:41 Date Recorded Pain severity - 0-10 verbal numeric rating [Score] - Reported Provider Name and Address Organization Details Last Updated DateTime 10/13/2023 8 Aly Chin LPN [facility] I L [employer] [facility] 10/13/2023 10:30:33 Date Recorded Body height Oxygen saturation Oxygen saturation in Arterial blood by Pulse oximetry Heart rate Body temperature Body mass index (BMI) Body weight Systolic blood pressure Diastolic blood pressure Provider Name and Address Organization Details Last Updated DateTime 4 180.34 cm 95 % 95 % 70 /min 97.6 [degF] 22 kg/m2 39774.5 9 g 124 mm[Hg] 70 mm[Hg] Madalyn Calzada CMA [facility] [employer] 4 10:55:07 Date Recorded Heart rate Respiratory rate Provider N bebeto and Address Organization Details Last Updated DateTime 12/01/2023 70 /min 15 /min Yon Rodriguez MD [address], [place], [place], [address], [place] [facility] [employer] 12/01/2023 11:25:07 Date Recorded Body height Body mass index (BMI) Body weight Body temperature Respiratory rate Oxygen saturation Oxygen saturation in Arterial blood by Pulse oximetry Provider Name and Address Organization Details Last Updated DateTime 4 180.34 cm 22.1 kg/m2 28730.0 3 g 98 [degF] 16 /min 99 % 99 % Emily Lacey MA [place] [facility] [employer] 4 12:24:31 Date Recorded Heart rate Heart rate Systolic blood pressure Diastolic blood pressure Provider Name and Address Organization Details Last Updated DateTime 01/26/2024 61 /min 61 /min 138 mm[Hg] 88 mm[Hg] Yon hernández MD [address], [place], [place], [address], [place] [employer] [facility] [employer] 01/26/2024 13:55:15 Date Recorded Body height Body mass index (BMI) Body weight Body temperature Heart rate Systolic blood pressure Diastolic blood pressure Provider Name and Address Organization Details Last Updated DateTime 5 180.34 cm 22.6 kg/m2 77269.9 6 g 97.4 [degF] 72 /min 148 mm[Hg] 92 mm[Hg] NATHAN Dowell ID [employer] [facility] [employer] 5 10:21:32 Social History Question Answer Notes LastModified by Organization Details LastModified Time Tobacco Smoking Status Current Every Day Smoker Not Available [employer] 07/01/2022 03:05:43 Do You Have An Advance Directive? No MIGRATION.0301 [id number] Information not available 07/01/2022 What Is Your Level Of Alcohol Consumption? Occasional MIGRATION.0301 [id number] Information not available 07/01/2022 Do You Wear A Helmet When Biking? No N/A [email or web address] Information not available 10/13/2023 Is Blood Transfusion Acceptable In An Emergency? Yes [email or web address] Information not available 10/13/2023 What Is Your Level Of Caffeine Consumption? Moderate MIGRATION.0301 699439 Information not available 07/01/2022 How Much Tobacco Do You Chew? None MIGRATION.0301 [id number] Information not available 07/01/2022 In The 14 Days Before Symptom Onset, Have You Had Close Contact With A Laboratory-conf irmed COVID-19 While That Case Was Ill? No MIGRATION.030 [id number] Information not available 07/01/2022 In The 14 Days Before Symptom Onset, Have You Had Close Contact With A Person Who Is Under Investigation For COVID-19 While That Person Was Ill? No MIGRATION.0301 [id number] Information not available 07/01/2022 Are You Currently Employed? No Information not available 10/13/2023 What Type Of Diet Are You Following? REGULAR MIGRATION.0301 [id number] Information not available 07/01/2022 Which Illicit Or Recreational Drugs Have You Used? None MIGRATION.030 629861 Information not available 07/01/2022 Do You Or Have You Ever Used E-cigarettes Or Vape? Never Used Electronic Cigarettes MIGRATION.030 917393 Information not available 07/01/2022 What Is The Highest Grade Or Level Of School You Have Completed Or The Highest Degree You Have Received? [id number] MIGRATION.0301 675969 Information not available 07/01/2022 What Is Your Occupation? Disabled MIGRATION.030 147778 Information not available 07/01/2022 How Many Days Of Moderate To Strenuous Exercise, Like A Brisk Walk, Did You Do In The Last 7 Days? 0 Information not available 10/13/2023 Have There Been Any Changes To Your Family Or Social Situation? No MIGRATION.0301 389083 Information not available 07/01/2022 Are There Any Guns Present In Your Home? Yes [email or web address] Information not available 10/13/2023 Do You Use Insect Repellent Routinely? Yes MIGRATION.0301 019401 Information not available 07/01/2022 Where Do You Live? SingleLevelHouse MIGRATION.0301 602258 Information not available 07/01/2022 Presence Of Domestic Violence No [email or web address] Information not available 10/13/2023 Guns Present In The Home? Yes [email or web address] Information not available 10/13/2023 Are You Able To Care For Yourself? Yes [email or web address] Information not available 10/13/2023 Are You Blind Or Do Yo Have Difficulty Seeing? No Information not available 10/13/2023 Are You Deaf Or Do You Have Serious Difficulty Hearing? Yes Hearing Loss Bilateral [email or web address] Information not available 10/13/2023 General Stress Level? Moderate [email or web address] Information not available 10/13/2023 Live Alone Of With Others? With Others [email or web address] Information not available 10/13/2023 Do You Have A Medical Power Of Winding Inspector And Tester? No MIGRATION.0301 001730 Information not available 07/01/2022 What Was The Date Of Your Most Recent Tobacco Screening? 05/24/2024 [email or web address] Information not available 05/24/2024 What Is Your Current Pack Years? [email or web address] MIGRATION.0301 845513 Information not available 07/01/2022 Have You Ever Been Counseled For Unhealthy Alcohol Use? No Information not available 10/13/2023 Do You Have Any Pets? No MIGRATION.0301 602063 Information not available 07/01/2022 What Is Your Relationship Status? Single MIGRATION.0301 782857 Information not available 07/01/2022 Do You Use Your Seat Belt Or Car Seat Routinely? Yes MIGRATION.0301 677191 Information not available 07/01/2022 Do You Have Smoke And Carbon Monoxide Detectors In Your Home? Yes MIGRATION.0301 188779 Information not available 07/01/2022 At What Age Did You Start Smoking Tobacco? 24 MIGRATION.0301 805822 Information not available 07/01/2022 Are You Passively Exposed To Smoke? Yes MIGRATION.0301 122054 Information not available 07/01/2022 Are There Any Smokers In Your House? Yes MIGRATION.0301 519405 Information not available 07/01/2022 How Much Tobacco Do You Smoke? 1 PPD MIGRATION.0301 507091 Information not available 07/01/2022 What Types Of Sporting Activities Do You Participate In? None [email or web address] Information not available 10/13/2023 Do You Feel Stressed (tense, Restless, Nervous, Or Anxious, Or Unable To Sleep At Night)? [id number] MIGRATION.0301 272677 Information not available 07/01/2022 Do You Use Any Illicit Or Recreational Drugs? No MIGRATION.0301 549745 Information not available 07/01/2022 Do You Use Sunscreen Routinely? No MIGRATION.0301 420789 Information not available 07/01/2022 Has Tobacco Cessation Counseling Been Provided? Yes [email or web address] Information not available 10/13/2023 On What Date Was Tobacco Cessation Counseling Provided? 10/13/2023 Information not available 10/13/2023 How Many Years Have You Smoked Tobacco? 33 MIGRATION.0301 641405 Information not available 07/01/2022 Have You Recently Traveled Abroad? No MIGRATION.0301 628808 Information not available 07/01/2022 Do You Have Any Dietary Restrictions? No MIGRATION.0301 615052 Information not available 07/01/2022 Do You Or Have You Ever Used Any Other Forms Of Tobacco Or Nicotine? No MIGRATION.0301 020141 Information not available 07/01/2022 How Many Days In The Past Year Have You Consumed 4 Or More Drinks? 0 [email or web address] Information not available 10/13/2023 Sex: Female Functional Status Question Answer Note LastModified by Organizat ion Details LastModified Time What is your exercise level? None MIGRATION.[id number] Information not available 07/01/2022 Mental Status None recorded. Family History Relationship Description Onset Age of this Age Resolved Age Notes LastModified by Organization Details LastModified Time Sister Diabetes mellitus MIGRATION.711 [id number] Not available 07/01/2022 03:15:45 Mother Cardiac pacemaker in situ MIGRATION.526 [id number] Not available 07/01/2022 03:15:45 Father Malignant tumor of colon MIGRATION.183 [id number] Not available 07/01/2022 03:15:45 Maternal Grandmother Malignant tumor of breast MIGRATION.292 [id number] Not available 07/01/2022 03:15:45 Sister Congestive heart failure [email or web address] Not available 2023 11:12:36 Paternal Grandmother Dementia [email or web address] Not available 11/30 11:13:05 Maternal Grandfather Dementia [email or web address] Not available 11/30 11:13:12 Mother Malignant tumor of gallbladder [email or web address] Not available 11/02 11:14:05 Medical History Condition Response NERVE DISEASE N BLINDNESS N RHEUMATIC FEVER N KIDNEY STONES N BLADDER PROBLEMS N MRSA N OTHER # 1 N POLIO N LUNG DISEASE/DISORDER N HISTORY OF DRUG ABUSE N RADIATION / CHEMOTHERAPY N COPD Y Other # 2 N BLOOD DISEASES N EAR OR HEARING PROBLEMS N MUMPS N SHINGLES N DEPRESSION (INCLUDING POST ) Y BOWEL PROBLEMS N STROKE/TIA N ULCERS N BENIGN PROSTATIC HYPERPLASIA N MEASLES N HYPOTENSION N MYOCARDIAL INFARCTION N OBESITY N GERD/NAUSEA N ANEURYSM N URINARY/BLADDER/KIDNEY PROBLEMS N CORONARY ARTERY DISEASE (CAD) N ADDICTION CONCERNS N Impotence N ENDOMETRIOSIS N USE OF BLOOD THINNERS N SKIN PROBLEMS N GASTROINTESTINAL DISORDER N PERIPHERAL VASCULAR DISEASE N MUSCLE,JOINT OR BONE PROBLEMS N GASTROINTESTINAL BLEEDING N BLOOD CLOTS N ASTHMA N CATARACTS N ERECTILE DYSFUNCTION N VARICOSITIES N GI PROBLEMS N Low Testosterone N INFERTILITY N AIDS/HIV N CHEMOTHERAPY / RADIATION N LIVER DISEASE N MALE HYPOGONADISM N HYPERTENSION N Deficiency Y TOURETTE'S N ANXIETY DISORDER Y BLOOD TRANSFUSION N ANEMIA/BLOOD DISORDER N CHRONIC EAR INFECTIONS N BRONCHITIS Y TUBERCULOSIS N GLAUCOMA N FOOT PROBLEM N DIVERTICULITIS N SLEEP APNEA N CHICKENPOX N INFECTIOUS DISEASE N PROSTATE N HEART ARRHYTHMIA N INSOMNIA Y HIGH CHOLESTEROL / HYPERLIPIDEMIA Y HYPERTHYROIDISM N EYE PROBLEMS N EDEMA N CHRONIC PAIN SYNDROME N HYPOTHYROIDISM N CONSTIPATION N CAROTID BLOCKAGE N BACK / NECK PROBLEMS Y ATHEROSCLEROSIS N BREAST PROBLEMS N DIALYSIS N ECZEMA N OSTEOPOROSIS N ARTHRITIS N APPENDICITIS N DIABETES, TYPE N BAD TEETH N ENT N HEARTBURN / REFLUX N AUTISM SPECTRUM DISORDER (ASD) N HEPATITIS / LIVER DISEASE N GOUT N SLEEP DISORDER N ALZHEIMER'S DISEASE N Brain Problems N HERPES N DEMENTIA N SEIZURES/EPILEPSY N HEADACHES/MIGRAINES N VASCULAR DISEASE N PACEMAKER N Blood Disorder N DIZZINESS N KIDNEY DISEASE N HEART DISEASE/HEART PROBLEMS N MULTIPLE SCLEROSIS N CARDIAC ARRHYTHMIA N CANCER: SPECIFY N Gall Stones N ATRIAL FIBRILLATION N PULMONARY EMBOLISM N AUTOIMMUNE DISEASE N Gynecological History Statement/Question Response Abnormal Pap N Date of Last Mammogram 07/02/2020 Date of Last Colonoscopy 05/03/2010 Most Recent Bone Density Date of LMP Date of Last Pap 11/23/2017 Current Control Method Menopause Obstetrics History GPAL:G 0 P 0 0 0 0 Immunizations Vaccine Type Date Status Note Provider Nam e and Address Organization Details Recorded Time COVID-19, mRNA, LNP-S, PF, 100 mcg/0.5mL dose or 50 mcg/0.25mL dose 1 completed Not Available [facility] 07/01/2022 03:33:09 COVID-19, mRNA, LNP-S, PF, 100 mcg/0.5mL dose or 50 mcg/0.25mL dose 1 completed Not Available [facility] 07/01/2022 03:33:09 Influenza, split virus, quadrivalent, preservative 9 completed Not Available [facility] 07/01/2022 03:33:09 pneumococcal polysaccharide PPV23 6 completed Not Available [facility] 07/01/2022 03:33:09 Influenza, split virus, quadrivalent, preservative 6 completed Not Available [facility] 07/01/2022 03:33:09 Influenza, split virus, quadrivalent, preservative 0 completed Not Available [facility] 07/01/2022 03:33:09 Influenza, split virus, quadrivalent, preservative 8 completed Not Available [facility] 07/01/2022 03:33:09 influenza, unspecified formulation 7 completed Not Available [facility] 07/01/2022 03:33:09 Influenza, high-dose, trivalent, PF 5 completed Not Available [facility] 07/01/2022 03:33:09 Influenza, split virus, quadrivalent, PF 2 completed Not Available [facility] 07/01/2022 03:33:10 Influenza, high-dose, trivalent, PF 3 completed Not Available [facility] 07/01/2022 03:33:10 Past Encounters Encounter ID Performer Location Encounter Start Date Encounter Closed Date Diagnosis/Indication Diagnosis SNOMED-CT Code Diagnosis ICD10 Code Diagnosis Note [id number] [facility] Internal [facility] [place] [address] , [place] [address] 07/22/2020 00:00:00 07/22/2020 14:21:52 [id number] [facility] [place] [address] [place] [address] y , [place] [address] 01/20/2021 00:00:00 01/22/2021 12:30:08 [id number] [facility] [place] [address] [place] [address] y , [place] [address] 06/23/2021 00:00:00 06/23/2021 11:07:44 [id number] [facility] [place] [address] [place] [address] y , [place] [address] 10/15/2021 00:00:00 10/15/2021 13:00:02 [id number] [facility] [place] [address] [place] [address] [place] [address] 02/16/2022 00:00:00 02/16/2022 16:41:58 [id number] Corky novak MD [facility] [place] [address] [place] [address] [place] [address] 04/14/2023 10:01:16 04/14/2023 10:42:45 Screening - NAD 508374942 Z13.9 C-scope: 11/20/16: Dr Liat kurtz next in 3 years-sco pe: 08/04/2021 : Dr Pozo, next in 5 years Mammogram: 09/06/17: Bi-rad 1 negativeMa mmogram 11/04/18: Is to now see Dr Nadir Carrillo on 11/21/18, she is aware of this: Dr Carrillo breast bx [id number]: Dr Carrillo, is to get R breast diagnostic , and L routine in 6 kapicl6110/2020: Mammogram [facility] , [place]: Neg Dr Carrillo, Dr Gomez radiologis tOrdered PAP: Done by Dr Grey Dexa: 08/10/2022 : OP, on prolia UTD get yearly flu shot as per her historyUTD on the pneumovax #23UTD on Tdap 2 years ago 2015UTD on COVID 19 vaccine, follow all CDC guidelines Can do RSV vaccine Should quit smoking! Counselled her again! RTC in 4 monthsDo labsER if worseshe did verbalize her understand ing of the above Low back pain 503130821 M54.50 S/p MRI 05/27/2020 : Ordered by Rowena Mo Off oxycodone, given by Yolanda Fonseca last refill on 12/18/2020 Off MTX/folicO ff morphineOf f Edith On gabapentin 300mg [address] Maldonado 04/02/2023 On tramadol given by Dr Ana farmer given by Conrad Solis 04/02/[address] Rosario referred in the past to Dr Marti, will refer again Hyperlipidemia 00085654 E78.5 On rosuvastat in 20mg daily, elevated LFTs, should d/c [facility] labs Chronic ob structive pulmonary disease 83803957 J44.9 On proairOn flonaseOn singulair Advised to quit! smoking 1/2 PPD! Insomnia 150579844 G47.0 0 On trazodone Mammography abnormal 168 820729 R92[address] Carrillo her breast doctor, and gets the orders for the mammograms thru his offfice ordered today however 04/14/2023 Liver enzy mes level above reference range 514412119 R74.01 10/22/2020 :Chol 216, LDL 111CMP: ALP 189, ALT 79, AST 108CBC: HCT 46.7Needs to repeat the labsGet US liverAdvis ed to not drink any ETOH!OV 06/23/2021 :Get labs and US liver doneOV 10/15/2021 :She does admit to drinking occasional alcohol, advised to wean off and quit, explained risks for this with the opiates she is taking!Get US liverNeeds to see GI hepatology OV 02/16/2022 :US liver 01/16/2022 : Chris Ramirez 12/25/2021 , f/u in one monthNeeds to see GI OV 04/14/2023 : See Dr PaiGet labs and US liver Smoker 05796964 F17.200 Advised to quit! LDCT 01/09/2020 : Next in one yearLDCT 04/07/2021 : Next in one yearLDCT 07/07/2022 : Next in one year Chronic re current major depressive disorder 6658693 F33.9 On the duloxetine Was on xanax from Dr Ceballos, but states not taking thisNot suidical or homicidal and declines psychiatry referrals 10/15/2021 , 02/16/2022 Screening mammography 24 123850 Z12.31 Upper resp iratory infection 09699193 J06.9 Does not want to do any COVID 19 RT PCR testing or for flu or strepGet on augmentin and MDP, ER if worse, Sinusitis 27305624 J32.9 She does c/o nasal congestion Wants a referral to ENT Dr Grupo olvera, also will get on augmentin and MDP [id number] Corky novak MD [facility] [place] [address] [facility] [address] [facility] [place] [address] 10/13/2023 09:56:46 10/13/2023 10:46:32 Adult health examination 967760039 Z00.00 Screening for disorder 849893500 Z13.9 Screening - NAD 91497058 3 Z13.9 C-scope: 11/20/16: Dr Liat kurtz next in 3 yearsC-sco pe: 08/04/2021 : Dr Pozo, next in 5 years Mammogram: 09/06/17: Bi-rad 1 negativeMa mmogram 11/04/18: Is to now see Dr Nadir Carrillo on 11/21/18, she is aware of this: Dr Carrillo breast bx [id number]/2020: Dr Carrillo, is to get R breast diagnostic , and L routine in 6 [id number]/2020: Mammogram [facility] [place]: Neg Dr Carrillo, Dr Gomez radiologis tOrdered 10/13/2023 PAP: Done by Dr Grey Dexa: 08/10/2022 : OP, on prolia UTD get yearly flu shot as per her historyUTD on the pneumovax #23UTD on Tdap 2 years ago as per her historyUTD on COVID 19 vaccine, follow all CDC guidelines Can do RSV vaccineUTD on shingrix Should quit smoking! Counselled her again! RTC in 4 monthsDo labsER if worseshe did verbalize her understand ing of the above Low back pain 274169321 M54.50 S/p MRI 05/27/2020 : Ordered by Rowena Mo Off oxycodone, given by Yolanda Fonseca last refill on 12/18/2020 Off MTX/folicO ff morphineOf f Edith On gabapentin 300mg [address] Maldonado 04/02/2023 Not on tramadol given by Dr Ana farmer given by Conrad Solis 04/02/2023 On cosentyxOn celebrexOn hydrocodon e Sees Dr Rosario referred in the past to Dr Marti, will refer again Dr Marti 07/23/2023 Hyperlipidemia 74273742 E78.5 On rosuvastat in 20mg daily, elevated LFTs, should d/c thisGet labs Chronic ob structive pulmonary disease 60551946 J44.9 On proairOn flonaseOn singulair Advised to quit! smoking 1/2 PPD!Referr ed to pulmonary Insomnia 242714942 G47.0 0 On trazodone Mammography abnormal 168 232162 R92.[address] Carrillo her breast doctor, and gets the orders for the mammograms thru his offfice ordered today however 04/14/2023 , ordered again 10/13/2023 Liver enzy mes level above reference range [id number] R74.01 10/22/2020 :Chol 216, LDL 111CMP: ALP 189, ALT 79, AST 108CBC: HCT 46.7Needs to repeat the labsGet US liverAdvis ed to not drink any ETOH!OV 06/23/2021 :Get labs and US liver doneOV 10/15/2021 :She does admit to drinking occasional alcohol, advised to wean off and quit, explained risks for this with the opiates she is taking!Get US liverNeeds to see GI hepatology OV 02/16/2022 :US liver 01/16/2022 : NegDr James 12/25/2021 , f/u in one monthNeeds to see GI OV 04/14/2023 : See Dr Bowers labs and US liver OV 10/13/2023 : Needs to see GI Dr Ramirez Smoker [id number] F17.200 Advised to quit! LDCT 01/09/2020 : Next in one yearLDCT 04/07/2021 : Next in one yearLDCT 07/07/2022 : Next in one yearLCT 08/04/2023 : Mild emphysema Chronic re current major depressive disorder [id number] F33.9 On the duloxetine Was on xanax from Dr Ceballos, but states not taking thisNot suidical or homicidal and declines psychiatry referrals 10/15/2021 , 02/16/2022 Screening mammography 24 [id number] Z12.31 Sinusitis [id number] J32.9 Wants a referral to ENT Dr Grupo gongora lyTreated in the past with antibiotic s and steroids Gynecologi c examination [id number] Z01.419 Aneurysm o f thoracic aorta [id number] I71.20 Seen on LDCT 08/04/2023 , needs to see Dr Ledbetter [facility] Screening for cardiovascular system disease [id number] Z13.6 Needs to see cardiology [id number] Yon Rodriguez MD [facility] [place] [address] [address] 12/01/2023 10:42:32 12/01/2023 16:51:31 Dyspnea on exertion [id number] R06.09 R05.3 T78.40XA D89.9 [id number] Yon Rodriguez MD [facility] [place] [address] [address] 01/26/2024 12:04:20 02/03/2024 11:37:34 Severe chronic obstructive pulmonary disease [id number] J44.9 [id number] Corky novak MD [facility] [address] [place] [address] 05/24/2024 10:12:31 05/24/2024 10:57:52 Screening - NAD [id number] Z13.9 C-scope: 11/20/16: Dr Liat long in 3 yearsC-sco pe: 08/04/2021 : Dr Pozo, ethan in 5 years Mammogram: 09/06/17: Bi-rad 1 negativeMa mmogram 11/04/18: Is to now see Dr Nadir Carrillo on 11/21/18, she is aware of this: Dr Carrillo breast bx [id number]: Dr Carrillo, is to get R breast diagnostic , and L routine in 6 [id number]/2020: Mammogram [place], [place]: Neg Dr Carrillo, Dr Gomez radiologis tOrdered 10/13/2023 Mammogram: 03/02/2024 : neg PAP: Done by Dr Grey Dexa: 08/10/2022 : OP, on prolia UTD get yearly flu shot as per her historyUTD on the pneumovax #23UTD on Tdap 2 years ago as per her historyUTD on COVID 19 vaccine, follow all CDC guidelines Can do RSV vaccineUTD on shingrix Should quit smoking! Counselled her again! RTC in 4 monthsDo labsER if worseshe did verbalize her understand ing of the above 45 minutes spent with the patient and in the clinic, labs obtained today in the office, chart updated and referrals provided Low back pain [id number] M54.50 S/p MRI 05/27/2020 : Ordered by Rowena Mo Off oxycodone, given by Yolanda Fonseca last refill on 12/18/2020 Off MTX/folicO ff morphineOf f Edith On gabapentin 300mg [address] Maldonado 04/02/2023 Not on tramadol given by Dr Ana farmer given by Conrad Solis 04/02/2023 On cosentyxOn celebrexOn hydrocodon e Sees Dr Maldonado MRI L Spine 03/29/2024 : Dr Marti Hyperlipidemia [id number] E78.5 On rosuvastat in 20mg daily, elevated LFTs, should d/c thisGet labs Chronic ob structive pulmonary disease [id number] J44.9 On proairOn flonaseOn Brittney n ayla, will renew as per her request 05/24/2024 Advised to quit! smoking 1/2 PPD!Referr ed to pulmonary Insomnia [id number] G47.0 0 On trazodone Mammography abnormal 168 087949 R92.[address] Carrillo her breast doctor, and gets the orders for the mammograms thru his offfice ordered today however 04/14/2023 , ordered again 10/13/2023 Liver enzy mes level above reference range [id number] R74.01 10/22/2020 :Chol 216, LDL 111CMP: ALP 189, ALT 79, AST 108CBC: HCT 46.7Needs to repeat the labsGet US liverAdvis ed to not drink any ETOH!OV 06/23/2021 :Get labs and US liver doneOV 10/15/2021 :She does admit to drinking occasional alcohol, advised to wean off and quit, explained risks for this with the opiates she is taking!Get US liverNeeds to see GI hepatology OV 02/16/2022 :US liver 01/16/2022 : Chris Ramriez 12/25/2021 , f/u in one monthNeeds to see GI OV 04/14/2023 : See Dr Bowers labs and US liver OV 10/13/2023 : Needs to see GI Dr Ramirez OV 05/24/2024 : Get labs and US liver also needs to see Dr Ramirez Smoker [id number] F17.200 Advised to quit! LDCT 01/09/2020 : Next in one yearLDCT 04/07/2021 : Next in one yearLDCT 07/07/2022 : Next in one yearLCT 08/04/2023 : Mild emphysema Chronic re current major depressive disorder [id number] F33.9 On the duloxetine Was on xanax from Dr Ceballos, but states not taking thisNot suidical or homicidal and declines psychiatry referrals 10/15/2021 , 02/16/2022 Sinusitis 13121105 J32.9 Wants a referral to ENT Dr Grupo gongora lyTreated in the past with antibiotic s and steroids OV 05/24/2204 : Has noted nasal and sinus congestion , will start on augmentin and to continue OTC antihistam latricia, notify if not better Gynecologi c examination [id number] Z01.419 Aneurysm o f thoracic aorta 458147909 I71.20 Seen on LDCT 08/04/2023 , needs to see Dr Khloe [facility] Screening for cardiovascular system disease [id number] Z13.6 Needs to see cardiology Essential hypertension 50654131 I10 Does have a URI, advised to monitor and notify if persistent ly elevated BP Health Concerns Section Related Observation LastModified by Organization Detai ls LastModified Time None Recorded Concern Status LastModified by Organization Details LastModified Time None Recorded Advance Directives Directive N: Payers Encounter Date Sequence Insurance Name Policy Number Policy Anderson Covered Member ID Anderson Member ID Guarantor Name 04/14/2023 1 [employer] (MEDICARE REPLACEMENT/A DVANTAGE - HMO) [id number] Neva Yan [id number] Neva Yan 10/13/2023 1 [facility] (MEDICARE REPLACEMENT/A DVANTAGE - HMO) [id number] Neva Jonese [id number] Neva Jonese 12/01/2023 1 [employer] (MEDICARE REPLACEMENT/A DVANTAGE - HMO) [id number] Neva Yan [id number] Neva Jonese 01/26/2024 1 [employer] (MEDICARE REPLACEMENT/A DVANTAGE - HMO) [id number] Neva Yan [id number] Neva Yan 05/24/2024 1 [employer] (MEDICARE REPLACEMENT/A DVANTAGE - HMO) [id number] Neva Yan [id number] Neva Yan Notes Date Note Type Note Provider Name and Address Organization Details Recorded Time 3 text/html Here to establish carePast Hx:LBPDepressionReviewed her social, family and surgical history.She is here to get some labs, and states that she is doing well otherwise.She states that she does want to chest her R wrist, has been having pain with tingling since 6 months, she is R HD and states that she has worked her 'whole life' 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.OV 05/11/17:Here for her routine apt, feels that she is doing well, no new labsHas had some snus headaches for a month, no cough, no blood in the cough, no fevers or chills or N/V OV 11/09/17:Here for routine aptShe states that she is doing wellLabs were done [facility] [place], [place]She would also like a referral for the skin lesion on the R forearm, now has increased in size and it itchesOV 05/09/18:Here for her routine aptShe states that she is doing well at this timeNo recent labs doneOV 06/06/18:ACV:c/o cough, with a sore throat since 7 daysNo blood in sputum, has greenish sputumSome nausea no vomiting todayNo rashNo chest pain, SOBDoes have sinus congestion and nasal congestionNo blood from noseOV 11/14/18:Here for her routine aptShe did do the labsShe has not yet done her LDCT or her OB aptShe states that she is busy with selling her mother's houseShe is scheduled now for a R breast biopsy alsoOV 03/20/19:Here for her routine aptShe has ongoing hand pain has seen Dr Reeves and wants another referralAlso wants to repeat the mammogram as she states the surgeon did not get the 'spot'She apparently did do the labsShe has URI sxGreenish sputum since a weekNo blood in the sputumNo chest pains or SOB or wheezingNo fevers or chillsNo rashOV 09/18/2019:Tele visitShe is agree able to do this aptShe states that she did not do the labs d/t the fear of COVID 19, she also has not seen the SHAPER SETTER but does have apt for a breast biopsy in 12/2019She also fell off her chair in the yard about a week ago and now has pain in the R ribs area, is able to take a deep breathShe would like to get an xray but 'not yet' d/t to COVID 19 fears as per herOV 01/15/2020:Here for her routine aptShe did do the labsShe states that she is doing well, but still has LBP and the oxycodone is not helpingShe states that she has seen Dr Torres does not have any rib pain from the fall in 09/2019, and she did not do the xrays for the ribsShe is here for her MWV alsoOV 07/22/2020:Here for her routine aptShe feels Jonathon has seen her pain management MD and now states that she is not taking any more xanax but would like to get on some sleeping meds as this was the reason she was taking xanax and not really for anxietyShe is not suicidal or homicidalShe has not done her labsOV 01/20/2021:Here for her routine aptShe is c/o LBP and leg pain, pain is 10/10, c/o N/T and R leg weakness, is does see pain management, she states that her pain management MD did decrease the dose of the opiate and the pain has increased, she would now like a referral to rheumatologistShe is on the opiatesNo new labsOV 06/23/2021:Here for her routine aptShe is doing wellNo recent labs notedC/o L earache, no dizziness, no fevers or chills, wants to make sure she does not have waxOV 10/15/2021:Here for her routine apt, she feels well, but continues to have LBP, has seen Dr Maldonado and is now on humeraNo recent labs since 2OV 02/16/2022:Here for her f/u apt, she states that the LBP is not much improved with the Edith, she did see Dr Maldonado and he is treating her also with methadone but this too has not helped, she did do the labs OV 04/14/2023: Here for her f/u apt, she has been non compliant with her visit, no recent labs noted also, c/o nasal congestion and would like 'steroid pack and antibiotic' denies any fevers or chills, also would like to get a referral to Dr Lombardo ENT, she declined any testing for COVID 19 and states that she is not uptodate with the COVID 19 vaccine and does not want that, she sill has LBP also, no N/T or weakness but does want a referral for pain management Corky Heredia MD [address] [place] [address] [place], [facility] [address], [place], [address], [place] [facility] 04/14/2023 10:46:57 4 text/html Here to establish carePast Hx:LBPDepressionReviewed her social, family and surgical history.She is here to get some labs, and states that she is doing well otherwise.She states that she does want to chest her R wrist, has been having pain with tingling since 6 months, she is R HD and states that she has worked her 'whole life' 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.OV 05/11/17:Here for her routine apt, feels that she is doing well, no new labsHas had some snus headaches for a month, no cough, no blood in the cough, no fevers or chills or N/V OV 11/09/17:Here for routine aptShe states that she is doing wellLabs were done yesterday [facility] [place], [place] would also like a referral for the skin lesion on the R forearm, now has increased in size and it itchesOV 05/09/18:Here for her routine aptShe states that she is doing well at this timeNo recent labs doneOV 06/06/18:ACV:c/o cough, with a sore throat since 7 daysNo blood in sputum, has greenish sputumSome nausea no vomiting todayNo rashNo chest pain, SOBDoes have sinus congestion and nasal congestionNo blood from noseOV 11/14/18:Here for her routine aptShe did do the labsShe has not yet done her LDCT or her OB aptShe states that she is busy with selling her mother's houseShe is scheduled now for a R breast biopsy alsoOV 03/20/19:Here for her routine aptShe has ongoing hand pain has seen Dr Reeves and wants another referralAlso wants to repeat the mammogram as she states the surgeon did not get the 'spot'She apparently did do the labsShe has URI sxGreenish sputum since a weekNo blood in the sputumNo chest pains or SOB or wheezingNo fevers or chillsNo rashOV 09/18/2019:Tele visitShe is agree able to do this aptShe states that she did not do the labs d/t the fear of COVID 19, she also has not seen the SHAPER SETTER but does have apt for a breast biopsy in 12/2019She also fell off her chair in the yard about a week ago and now has pain in the R ribs area, is able to take a deep breathShe would like to get an xray but 'not yet' d/t to COVID 19 fears as per herOV 01/15/2020:Here for her routine aptShe did do the labsShe states that she is doing well, but still has LBP and the oxycodone is not helpingShe states that she has seen Dr Torres does not have any rib pain from the fall in 09/2019, and she did not do the xrays for the ribsShe is here for her MWV alsoOV 07/22/2020:Here for her routine aptShe feels Jonathon has seen her pain management MD and now states that she is not taking any more xanax but would like to get on some sleeping meds as this was the reason she was taking xanax and not really for anxietyShe is not suicidal or homicidalShe has not done her labsOV 01/20/2021:Here for her routine aptShe is c/o LBP and leg pain, pain is 10/10, c/o N/T and R leg weakness, is does see pain management, she states that her pain management MD did decrease the dose of the opiate and the pain has increased, she would now like a referral to rheumatologistShe is on the opiatesNo new labsOV 06/23/2021:Here for her routine aptShe is doing wellNo recent labs notedC/o L earache, no dizziness, no fevers or chills, wants to make sure she does not have waxOV 10/15/2021:Here for her routine apt, she feels well, but continues to have LBP, has seen Dr Maldonado and is now on humeraNo recent labs since 2OV 02/16/2022:Here for her f/u apt, she states that the LBP is not much improved with the Edith, she did see Dr Maldonado and he is treating her also with methadone but this too has not helped, she did do the labs OV 04/14/2023: Here for her f/u apt, she has been non compliant with her visit, no recent labs noted also, c/o nasal congestion and would like 'steroid pack and antibiotic' denies any fevers or chills, also would like to get a referral to Dr Grupo JANE, she declined any testing for COVID 19 and states that she is not uptodate with the COVID 19 vaccine and does not want that, she sill has LBP also, no N/T or weakness but does want a referral for pain management OV 10/13/2023: Here for her f/u apt, she feels well today, she continues to have LBP, she states that she has seen pain management and states that she cannot get surgery for the back Corky Heredia MD [address] [facility], [facility] [address], [place], [address], [place] [facility] 10/18/2023 18:30:15 4 text/html Primary care/Referring provider: Corky Heredia MD Patient is here to go over shortness of breath evaluation/management. Initial development of shortness of breath: 2013Duration of shortness of breath: 11 yearsCondition of shortness of breath: worseningTiming of shortness of breath: noneFrequency: once a monthLimits activities: yesAggravating factors: walking up steep drivewayAlleviating factors: rest Modified [employer] [place] (mMRC) Dyspnea Scale - Grade 2Grade 0 I only get breathless with strenuous exercise .Grade 1 I get short of breath when hurrying on the level or walking up a slight hill .Grade 2 I walk slower than people of the same age on the level because of breathlessness or have to stop for breath when walking at my own pace on the level .Grade 3 I stop for breath after walking about 100 yards or after a few minutes on the level .Grade 4 I am too breathless to leave the house or I am breathless when dressing . Treatment history: Albuterol HFA as needed since 2012, uses only once a month Other symptoms:Drooling: noDysarthria: noNeck pain: noOdynophagia: noDysphagia: noWeak mastication: noFacial weakness: noNasal speech: noProtruding tongue: noProductive cough: clear to greenWheezing: noChest tightness: yesOrthopnea: noFrequent throat clearing or swallowing: yesPalpitations: noHeartburn: noEdema: no Environmental exposures:Nicotine smoke: 1 ppd 1988-present = 35 pack yearsPaint: noDye: noDust mites: yesMold: noDamp basement: noWood burning stove: noAnimal dander: noCockroaches: noPollen: yesArsenic: noAsbestos: noBeryllium: noCadmium: noChromium: noCoal smoke: noDiesel fumes: noNickel: noSilica: noSoot: no EPWORTH SLEEPINESS SCALE (ESS) CHANCE OF DOZING SCORE0 = would never doze1 = slight chance of dozing2 = moderate chance of dozing3 = high chance of dozing SITUATION AND CHANCE OF DOZINGSitting and reading - 0Watching television - 1Sitting inactive in a public place (e.g. a theater or meeting) - 0As a passenger in a car for an hour without a break - 0Lying down to rest in the afternoon when circumstances permit - 0Sitting and talking to someone - 0Sitting quietly after lunch without alcohol - 0In a car, while stopped for a few minutes in the traffic - 0TOTAL SCORE 1Subjectively, patient has a slight chance of dozing. Yon Rodriguez MD [address] [place] [address], [address], [facility] [employer] 12/01/2023 11:25:13 4 text/html Primary care/Referring provider: Corky Heredia MD Patient is here to go over her lab tests and PFT as part of her shortness of breath evaluation/management. Initial development of shortness of breath: 2013Duration of shortness of breath: 11 yearsCondition of shortness of breath: stableTiming of shortness of breath: noneFrequency: once a monthLimits activities: yesAggravating factors: walking up steep drivewayAlleviating factors: rest Modified [employer] [place] (mMRC) Dyspnea Scale - Grade 2Grade 0 I only get breathless with strenuous exercise .Grade 1 I get short of breath when hurrying on the level or walking up a slight hill .Grade 2 I walk slower than people of the same age on the level because of breathlessness or have to stop for breath when walking at my own pace on the level .Grade 3 I stop for breath after walking about 100 yards or after a few minutes on the level .Grade 4 I am too breathless to leave the house or I am breathless when dressing . Treatment history: Albuterol HFA as needed since 2013, uses only once a month Other symptoms:Drooling: noDysarthria: noNeck pain: noOdynophagia: noDysphagia: noWeak mastication: noFacial weakness: noNasal speech: noProtruding tongue: noProductive cough: clear to greenWheezing: noChest tightness: yesOrthopnea: noFrequent throat clearing or swallowing: yesPalpitations: noHeartburn: noEdema: no Environmental exposures:Nicotine smoke: 1 ppd 1988-present = 35 pack yearsPaint: noDye: noDust mites: yesMold: noDamp basement: noWood burning stove: noAnimal dander: noCockroaches: noPollen: yesArsenic: noAsbestos: noBeryllium: noCadmium: noChromium: noCoal smoke: noDiesel fumes: noNickel: noSilica: noSoot: no EPWORTH SLEEPINESS SCALE (ESS) CHANCE OF DOZING SCORE0 = would never doze1 = slight chance of dozing2 = moderate chance of dozing3 = high chance of dozing SITUATION AND CHANCE OF DOZINGSitting and reading - 0Watching television - 0Sitting inactive in a public place (e.g. a theater or meeting) - 0As a passenger in a car for an hour without a break - 0Lying down to rest in the afternoon when circumstances permit - 0Sitting and talking to someone - 0Sitting quietly after lunch without alcohol - 0In a car, while stopped for a few minutes in the traffic - 0TOTAL SCORE 0Subjectively, patient has no chance of dozing. 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.OV 05/11/17:Here for her routine apt, feels that she is doing well, no new labsHas had some snus headaches for a month, no cough, no blood in the cough, no fevers or chills or N/V OV 11/09/17:Here for routine aptShe states that she is doing wellLabs were done yesterday [facility] [place], [place] would also like a referral for the skin lesion on the R forearm, now has increased in size and it itchesOV 05/09/18:Here for her routine aptShe states that she is doing well at this timeNo recent labs doneOV 06/06/18:ACV:c/o cough, with a sore throat since 7 daysNo blood in sputum, has greenish sputumSome nausea no vomiting todayNo rashNo chest pain, SOBDoes have sinus congestion and nasal congestionNo blood from noseOV 11/14/18:Here for her routine aptShe did do the labsShe has not yet done her LDCT or her OB aptShe states that she is busy with selling her mother's houseShe is scheduled now for a R breast biopsy alsoOV 03/20/19:Here for her routine aptShe has ongoing hand pain has seen Dr Reeves and wants another referralAlso wants to repeat the mammogram as she states the surgeon did not get the 'spot'She apparently did do the labsShe has URI sxGreenish sputum since a weekNo blood in the sputumNo chest pains or SOB or wheezingNo fevers or chillsNo rashOV 09/18/2019:Tele visitShe is agree able to do this aptShe states that she did not do the labs d/t the fear of COVID 19, she also has not seen the SHAPER SETTER but does have apt for a breast biopsy in 12/2019Shanmol also fell off her chair in the yard about a week ago and now has pain in the R ribs area, is able to take a deep breathShe would like to get an xray but 'not yet' d/t to COVID 19 fears as per herOV 01/15/2020:Here for her routine aptShe did do the labsShe states that she is doing well, but still has LBP and the oxycodone is not helpingShe states that she has seen Dr Torres does not have any rib pain from the fall in 09/2019, and she did not do the xrays for the ribsShe is here for her MWV alsoOV 07/22/2020:Here for her routine aptShe feels Jonathon has seen her pain management MD and now states that she is not taking any more xanax but would like to get on some sleeping meds as this was the reason she was taking xanax and not really for anxietyShe is not suicidal or homicidalShe has not done her labsOV 01/20/2021:Here for her routine aptShe is c/o LBP and leg pain, pain is 10/10, c/o N/T and R leg weakness, is does see pain management, she states that her pain management MD did decrease the dose of the opiate and the pain has increased, she would now like a referral to rheumatologistShe is on the opiatesNo new labsOV 06/23/2021:Here for her routine aptShe is doing wellNo recent labs notedC/o L earache, no dizziness, no fevers or chills, wants to make sure she does not have waxOV 10/15/2021:Here for her routine apt, she feels well, but continues to have LBP, has seen Dr Maldonado and is now on humeraNo recent labs since 2OV 02/16/2022:Here for her f/u apt, she states that the LBP is not much improved with the Edith, she did see Dr Maldonado and he is treating her also with methadone but this too has not helped, she did do the labs OV 04/14/2023: Here for her f/u apt, she has been non compliant with her visit, no recent labs noted also, c/o nasal congestion and would like 'steroid pack and antibiotic' denies any fevers or chills, also would like to get a referral to Dr Grupo JANE, she declined any testing for COVID 19 and states that she is not uptodate with the COVID 19 vaccine and does not want that, she sill has LBP also, no N/T or weakness but does want a referral for pain management OV 10/13/2023: Here for her f/u apt, she feels well today, she continues to have LBP, she states that she has seen pain management and states that she cannot get surgery for the back OV 05/24/2024: Here for her f/u apt, she feels well today, she has not yet done any labs, does c/o sinus congestion, no cough, no fevers or chills, no chest pain or SOB Corky Heredia MD [address] [place] [address], [place] [address], [place], [address], [facility] 05/24/2024 10:53:43 OBGyn Episode No OBEpisode recorded.
--- OUTSIDE RECORDS SUMMARY | 2024-08-07 09:52 | XMS_ITS | Clinical Summary ---
Author Organization [facility] Address [facility] [place] [address] Care Team Providers Care Personal Financial Planner Name Role Phone Lauren Heredia MD Primary Care Provider Allergies No known active allergies Medications No known medications Social History Tobacco Use Types Packs/Day Years Used Date Smoking Tobacco: Every Day Cigarettes Smokeless Tobacco: Never Alcohol Use Standard Drinks/Week Comments No 0 (1 standard drink = 0.6 oz pur e alcohol) AUDIT-C Answer Date Recorded Frequency of Alcohol Consumption Never 04/27/2019 Average Number of Drinks Not on file 019 Frequency of Binge Drinking Not on file 04/03 Comments Unknown Sex and Gender Information Value Date Recorded Sex Assigned at Not on file Legal Sex Female 1:00 PM REGIONAL PLANNER Gender Identity Not on file Sexual Orientation Not on file Last Filed Vital Signs Vital Sign Reading Time Taken Comments Blood Pressure 134/76 03/14/2024 11:29 AM REGIONAL PLANNER Pulse 72 03/14/2024 11:29 AM REGIONAL PLANNER Temperature 36.7 C (98.1 F) 03/14/2024 11:29 AM REGIONAL PLANNER Respiratory Rate 20 03/14/2024 11:29 AM REGIONAL PLANNER Oxygen Saturation 100% 03/14/2024 11:29 AM REGIONAL PLANNER Inhaled Oxygen Concentration - - Weight 72.6 kg (160 lb) 03/14/2024 11:29 AM REGIONAL PLANNER Height 177.8 cm (5' 10 ) 03/14/2024 11:29 AM REGIONAL PLANNER Body Mass Index 22.96 03/14/2024 11:29 AM REGIONAL PLANNER Plan of Treatment Health Maintenance Due Date Last Done Comments Colorectal Cancer Screening Colonoscopy (10 Years) 1960 DTaP, Tdap and Td Vaccines (1 - Tdap) 1978 Pneumococcal Vaccine: 65+ Years (2 of 2 - PCV) 01/27/2017 01/28/2016 Pneumococcal Vaccine: Pediatrics (0 to 5 Years) and At-Risk Patients (6 to 64 Years) (2 of 2 - PCV) 01/27/2017 01/28/2016 COVID-19 Vaccine (4 - season) 2024 05/01/2021, 08/25/2020, 07/29/2020 Dexa Scan (General) 2024 Mammogram Screening 03/02/2026 03/02/2024, 07/15/2022, 01/07/2021, Additional history exists RSV Immunization or 60+ Years (1 - 1-dose 75+ series) 2034 Zoster Vaccines Completed 07/26/2018, 04/16/2018 Hepatitis C Completed 02/24/2021, 02/01, 02/24/2021 Meningococcal B Vaccine Aged Out No l onger eligible based on patient's age to complete this topic Meningococcal Vaccine Aged Out No pilo yfn eligible based on patient's age to complete this topic RSV Immunizations Under 20 Months Aged Out No longer eligible based on patient's age to complete this topic Insurance [facility] Care Teams Personal Financial Planner Relationship Specialty Start Date End Date Lauren Heredia MD [address] [facility] [address] [place] [address] PCP - General INTERNAL MEDICINE 04/27/19
--- OUTSIDE RECORDS SUMMARY | 2024-08-07 09:52 | XMS_ITS | Clinical Summary ---
Author Organization [place] [id number] [facility] Address [address] [place] [address] Care Team Providers Care Printing Table Worker Name Role Phone Genna Heredia MD Primary Care Provide r Surgical History Surgery Date Site/Laterality Comments BREAST BIOPSY Right BREAST BIOPSY Right Family History Medical History Relation Name Comments Breast cancer Maternal Grandmother Relation Name Status Comments Maternal Grandmother Social History Tobacco Use Types Packs/Day Years Used Date Smoking Tobacco: Never Assessed Comments No Sex and Gender Information Value Date Recorded Sex Assigned at Not on file 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 Gender Identity Not on file Sexual Orientation Not on file Obstetrics History Para Term AB IAB SAB Ectopic Multiple Livin g Live Births 0 0 0 0 0 0 0 0 0 0 0 Plan of Treatment Health Maintenance Due Date Last Done Comments Cervical Cancer Screening 1959 Colon Cancer Screening-Colonoscopy 1959 Depression Screening 1959 Fall Risk Assessment 1959 Hepatitis C Screening 1959 Osteoporosis Screening-Bone Density Scan 1959 DTaP/Tdap/Td Vaccine (1 - Tdap) 1970 Hepatitis B Screening 1977 Pneumococcal vaccine 65+ (2 of 2 - PCV) 01/27/2017 01/28/2016 Covid-19 Vaccine (3 - 2023-2 5 season) 2024 08/25/2020, 07/29/2020 Influenza Vaccine (#1) 2024 , 02/03/2019, 02/02/2018, Additional history exists Well Visit 65+ 2024 Breast Cancer Screening-Mammogram 03/02/2025 03/02/2024, 07/15/2022, 01/07/2021, Additional history exists Colon Cancer Screening-FIT Discontinued 03/12/2014 Zoster Vaccine Completed 07/26/2018, 04/16/2018 Procedures Procedure Name Priority Date/Time Associated Diagnosis Comments SCREENING MAMMOGRAM BILATERAL W MICAH Schedule Routine, Read Routine (OP Routine) 03/02/2024 9:38 AM CDT Screening mammogram, encounter for OCCULT BLOOD, FECAL (FIT) Routine 03/12/2014 9:05 AM AUTOMOTIVE MECHANICAL ENGINEER from Last 3 Months or Most Recently [...] age 39, based on guidelines of the [employer] (ACR Practice Parameter for the Performance of Screening and Diagnostic Mammography) and [employer] [employer]. For women [...] fecal non neoplasm screening (03/12/2014 9:05 AM AUTOMOTIVE MECHANICAL ENGINEER) Stool Occult Blood POSITIVE NEGATIVE 03/12/2014 2:25 PM AUTOMOTIVE MECHANICAL ENGINEER [facility] HISTORICAL RESULTS 03/12/2014 9:05 AM AUTOMOTIVE MECHANICAL ENGINEER 03/12/2014 2:22 PM AUTOMOTIVE MECHANICAL ENGINEER us Historical Provider LAB BODY FLUIDS AND STOOL S ORDERABLES Final Result [facility] HISTORICAL RESULTS from Last 3 Months or Most Recently Relevant to Health Maintenance Insurance [facility] MDCR HMO [facility] MED[facility] Address: [address] [address] [place] [address] [employer] MED[employer]ARE [employer] [facility] Address: [facility] [address] [place] [address] Care Teams Printing Table Worker Relationship Specialty Start Date End Date Genna Heredia MD PCP - General 10/18/18
--- OUTSIDE RECORDS SUMMARY | 2024-08-07 09:52 | XMS_ITS ---
Care Plan - [facility] Created on: August 07, 2024 ANAHI FROST : 1960 Sex: Female Author Organization [facility] Address [address] [place] [phone] Phone Care Team Providers Care Ip Attorney Name Role Phone Unavailable Unavailable Unavailable
[2024-08-07 11:22] LABS: Hematocrit 40.5 % (37.0-47.0); Hemoglobin 12.9 g/dL (12.0-15.0); Mean Corpuscular HGB Conc 31.9 g/dl (32-36); Mean Corpuscular Hemoglobin 30.6 pg (26-34); Mean Corpuscular Volume 96.2 fl (80-100); Mean Platelet Volume 9.7 fl (7.4-10.4); Platelet Count Result 209 k/mm3 (150-375); Red Blood Count 4.21 M/mm3 (4.2-5.4); Red Cell Distribution Width 14.5 % (11.5-14.5); White Blood Count 7.6 K/mm3 (4.5-10.0)
[2024-08-07 11:43] LABS: Alanine Aminotransferase 80 U/L (6-35); Albumin Level 3.4 g/dL (3.5-5.1); Alkaline Phosphatase 397 U/L (38-126); Anion Gap 6 mmol/L (4-12); Aspartate Amino Transferase 43 U/L (14-36); Bilirubin,Total 0.7 mg/dL (0.2-1.3); Blood Urea Nitrogen 11 mg/dL (7-17); Calcium 8.9 mg/dL (8.4-10.2); Carbon Dioxide 27 mmol/L (22-30); Chloride 107 mmol/L (98-107); Estimated Glomerular Filt Rate > 60; Glucose 95 mg/dL (65-110); Potassium 3.8 mmol/L (3.4-5.0); Sodium 140 mmol/L (137-145)
[2024-08-07 12:52] LABS: Hepatitis B Surface Antigen Negative (Negative)
[2024-08-07 13:09] LABS: Hepatitis B Surface Anti Res Negative
[2024-08-08 12:19] LABS: GGT 481 U/L (3-65)
[2024-08-08 14:04] LABS: Hepatitis B DNA PCR NOT DETECTED (NOT DETECTED); Hepatitis B DNA PCR NOT DETECTED Log IU/mL (NOT DETECTED)
[2024-08-09 00:58] LABS: Hepatitis Be Antibody NON-REACTIVE (NON-REACTIVE); Hepatitis Be Antigen NON-REACTIVE (NON-REACTIVE)
[2024-08-09 01:34] LABS: Alpha-1-Antitrypsin, QN 188 mg/dL (83-199); Ceruloplasmin 25 mg/dL (14-48); Hepatitis B Core Ab Total NON-REACTIVE (NON-REACTIVE)
[2024-08-10 08:28] LABS: Actin Antibody (IgG) <20 U (<20)
[2024-08-10 13:13] LABS: Mitochondrial (M2) Ab (IgG) <20.0 U
[2024-08-11 18:39] LABS: ALT 62 U/L (6-29); Alpha-2-Macroglobulin 177 mg/dL (106-279); Apolipoprotein A1 184 mg/dL (101-198); Fibrosis Score 0.46; Fibrosis Stage F1-F2; GGT 502 U/L (3-65); Haptoglobin 64 mg/dL (43-212); Necroinflammat Act Grade A1-A2; Reference ID 5430745; Total Bilirubin 0.5 mg/dL (0.2-1.2)
== END 2024-08-07 09:09 | disposition home or self-care (01) ==
PROVIDERS: PCP Internal Medicine; Visit Provider Internal Medicine Gastroenterology
DX: R74.8 Abnormal levels of other serum enzymes (principal); R76.8 Other specified abnormal immunological findings in serum; R74.01 Elevation of levels of liver transaminase levels
CPT/HCPCS: 36415; 76705; 80053; 81596; 82103; 82390; 82728; 82977; 83516; 83520; 85027; 86038; 86039; 86704; 86706; 86707; 87340; 87350; 87517